=== PATIENT | male | born 1995 | race Caucasian/White ===

== ENCOUNTER 2018-07-29 08:10 | Outpatient (REF) | payer SELFPAY ==
[2018-07-30 13:38] LABS: Chlamydia Result Negative; GC Result Negative; Specimen Description URINE
== END 2018-07-29 08:30 ==
LOC: NCHCN 08:10
PROVIDERS: PCP Internal Medicine; Visit Provider Internal Medicine
DX: Z11.3 Encounter for screening for infections with a predominantly sexual mode of transmission (principal); Z20.2 Contact with and (suspected) exposure to infections with a predominantly sexual mode of transmission
CPT/HCPCS: 87491; 87591

== ENCOUNTER 2019-07-11 22:18 | Emergency (ER) | payer OTHER, SELFPAY ==
[2019-07-11 22:21] VITALS: BP 145/82; PULSE 111; RESP 20; TEMP 36.4; O2SAT 99
--- NOTE | 2019-07-11 22:29 | NUR.NOTE ---
to room3 via WC with c/o right ankle pain s/p hitting tree while sledding. States he hit his right ankle against tree. +PP, +CSM. 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 Pt reports he drank half a 1/5 and 10 beers tonight. Mild swelling.
--- NOTE | 2019-07-11 22:33 | ED.GENADUL_ITS ---
Discharge Plan Disposition Patient Disposition: HOME Condition: Stable Discharge Details Chief Complaint: Orthopedic Clinical Impression: Closed right fibular fracture Primary Care Provider: Paul Campos ED Provider: Richi Jacobo Home Meds and New Rx's Prescriptions: New oxycodone 5 mg tablet 5 mg PO Q6H PRN (Reason: pain) Qty: 10 RF: 0 Continued buprenorphine-naloxone [Suboxone] 1 EACH film 8 mg PO DAILY RF: 0 clonidine HCl [Catapres] 0.2 MG tablet 0.2 mg PO HS RF: 0 omeprazole 20 MG capsule,delayed release(DR/EC) 20 mg PO DAILY RF: 0 azithromycin 250 MG tablet 250 mg PO DAILY Qty: 4 RF: 0 Discharge Instructions Instructions: Leg Fracture (ED) Additional Instructions: call orthopedics saturday for an appointment if you have severe worsening pain or feel worsening numbness return to the emergency department for reexamination you can take 1000mg tylenol and 600mg ibuprofen every 6 hours for pain and if need additional pain medication take 1 oxycodone. Medical Decision Making 24 yo male who states he was riding a sled when he lost control and his right ankle hit a tree. Did not hit his head and has no headache, neck pain, abd pain, chest pain, or sob. Has no significant deformity, mild swelling of medial and lateral malleolus, 2+ dp/pt pulses and normal sensation. Suspect sprain but will xray to eval for possible fx xray shows fibula fracture. Soft muscles, no evidence of peroneal nerve injury. Will place in posterior leg splint and have him f/u with orthopedics Differential Diagnosis Differential Diagnosis: sprain, strain, fracture, dislocation Medical Records Medical records reviewed: Yes I reviewed the patient's medical records. Imaging Data Radiologic Study: Attestation: I personally reviewed and interpreted this imaging study as follows: Imaging: X-Ray Radiologist's impression: IMPRESSION: No acute findings. on foot xray Radiologic Study #2: Attestation: I personally reviewed and interpreted this imaging study as follows: Imaging: X-Ray My impression: fracture Radiologist's impression: FINDINGS/IMPRESSION: There is a comminuted displaced fracture of the distal fibular diaphysis. Several lucencies in the posterior malleolus concerning for a minimally displaced fracture. No other acutely displaced fractures are appreciated. Mild widening of the medial clear space questionable for subtle subluxation. No definitive dislocation. Severe soft tissue swelling about the ankle. HPI General Mode of arrival: ambulatory . Date/Time Provider Initiated Documentation: 07/11/19 22:22 . Limitations to Documentation: no limitations . Information obtained by: patient . History of Present Illness 24 year old M presents to the emergency department with the chief complaint of right ankle pain, described as moderate, and it has been constant. Rest improves symptom(s), Movement worsens symptoms . Patient notes no other symptoms.. Related Data Home Medications Medication Instructions Recorded Confirmed buprenorphine-naloxone [Suboxone] 8 mg PO DAILY 05/06/15 11/01/16 clonidine HCl [Catapres] 0.2 mg PO HS 04/18/16 11/01/16 azithromycin 250 mg PO DAILY #4 tablet 11/01/16 omeprazole 20 mg PO DAILY 11/01/16 11/01/16 oxycodone 5 mg PO Q6H PRN #10 tab 07/11/19 Previous Rx's Medication Instructions Recorded azithromycin 250 mg PO DAILY #4 tablet 11/01/16 oxycodone 5 mg PO Q6H PRN #10 tab 07/11/19 Allergies Allergy/AdvReac Type Severity Reaction Status Date / Time Penicillins Allergy rash Unverified 07/11/19 22:23 Sulfa (Sulfonamide AdvReac Intermediate Hives Unverified 07/11/19 22:23 Antibiotics) General Stated Complaint: Orthopedic GRACIE: 3 Review of Systems All systems reviewed & are unremarkable except as noted in HPI and below Constitutional Constitutional: Denies chills, Denies fever(s) and Denies weakness Cardiovascular Cardiovascular: Denies dyspnea Respiratory Respiratory: Denies dyspnea Gastrointestinal Gastrointestinal: Denies abdominal pain, Denies nausea and Denies vomiting Neurologic Neurologic: Denies weakness PFSH Family History Mother No problems noted. Father Substance abuse Grandmother No problems noted. Grandmother No problems noted. Grandmother No problems noted. Social History Smoking/Tobacco Use Status: Current-Occasional Alcohol Intake: current Alcohol Intake frequency: 3 or more drinks per day Alcohol type: beer and hard liquor Drug use: Current Sobriety Substance use type: does not use Do you feel safe at home: Yes Do you feel safe in your relationship?: Yes Exam Const General: anxious Orientation: alert HENMT Head: normal to inspection Ears: external ears normal General nose exam: external nose normal Mouth: moist mucous membranes Eyes General: appearance normal, both eyes and all related structures Neck Neck: normal visual inspection Resp Effort & Inspection: normal respiratory effort and able to speak in complete sentences Cardio Rate: regular rate Skin General skin exam: no rashes or lesions noted Neuro General: alert and oriented x3 Extrem General: normal capillary refill Psych Mental Status: mental status grossly normal Course Vital Signs Vital signs: Vital Signs Temperature 36.4 C L 07/11/19 22:21 Pulse 111 H 07/11/19 22:21 Respiratory Rate 07/11/19 22:21 Blood Pressure 145/82 H 07/11/19 22:21 Pulse Oximetry 99 07/11/19 22:21 Temperature 36.4 C L 07/11/19 22:21 Temperature Source Temporal Artery Scan 07/11/19 22:21 Pulse 111 H 07/11/19 22:21 Respiratory Rate 07/11/19 22:21 Respiratory Effort 07/11/19 22:27 Blood Pressure 145/82 H 07/11/19 22:21 Pulse Oximetry 99 07/11/19 22:21 Oxygen Delivery Method Room Air 07/11/19 22:21 Oxygen Flow Rate 0 07/11/19 22:21 Pain Level 10 07/11/19 22:21 Procedures Orthopedic Splinting/Casting Injury #1: Side: right Lower Extremity Injury Location: lower leg Lower Extremity Immobilizer: posterior splint Other Orthopedic Equipment: crutches
[2019-07-11] MEDS: Ketorolac 30 MG/ML VIAL IM (22:34)
--- NOTE | 2019-07-11 22:38 | DI.RAD_ITS ---
EXAM: XR ANKLE RT COMPLETE INDICATION: pain s/p fall. COMPARISON: XR FOOT RT COMPLETE from 07/11/2019 XR FOOT RT COMPLETE from 07/11/2019 TECHNIQUE: 2D digital imaging was performed. FINDINGS: There is a spiral fracture of the distal fibula with mild lateral and posterior displacement. There is no significant angulation. The ankle mortise is widened medially. There is a nondisplaced fract ure of the posterior malleolus extending to the articular surface. No talar dome defect is seen. Th ere are small calcaneal spurs. IMPRESSION: Distal fibular fracture. Medial ankle mortise widening. Posterior malleolar fracture.
--- NOTE | 2019-07-11 22:43 | DI.RAD_ITS ---
EXAM: XR FOOT RT COMPLETE INDICATION: pain s/p fall. COMPARISON: No exams were available for comparison TECHNIQUE: 2D digital imaging was performed. FINDINGS: No fracture or dislocation is seen. IMPRESSION: Negative right foot.
[2019-07-11] MEDS: oxyCODONE 5 MG TAB PO (22:58)
--- NOTE | 2019-07-11 23:03 | DI.VRAD_ITS ---
PROCEDURE INFORMATION: Exam: XR Right Foot Complete Exam date and time: 07/11/2019 10:52 PM Age: 24 years old Clinical indication: Other: Pain S/P fall TECHNIQUE: Imaging protocol: XR Right foot. Views: 3 or more views. COMPARISON: CR XR ANKLE RT COMPLETE 07/11/2019 10:38 PM FINDINGS: Bones/joints: Normal. Soft tissues: Normal. IMPRESSION: No acute findings. Dictated and Authenticated by: Héctor Coronado MD. Ordering:TOD Stoddard MD
--- NOTE | 2019-07-11 23:06 | DI.VRAD_ITS ---
PROCEDURE INFORMATION: Exam: XR Right Ankle Exam date and time: 07/11/2019 10:52 PM Age: 24 years old Clinical indication: Other: Pain S/P fall TECHNIQUE: Imaging protocol: XR Right ankle. Views: 3 or more views. COMPARISON: No relevant prior studies available. FINDINGS/IMPRESSION: There is a comminuted displaced fracture of the distal fibular diaphysis. Several lucencies in the posterior malleolus concerning for a minimally displaced fracture. No other acutely displaced fractures are appreciated. Mild widening of the medial clear space questionable for subtle subluxation. No definitive dislocation. Severe soft tissue swelling about the ankle. Dictated and Authenticated by: Héctor Coronado MD. Ordering:TOD Stoddard MD
--- NOTE | 2019-07-11 23:40 | NUR.NOTE ---
Crutch teaching with return demonstration. Discharge instructions reviewed with verbal understanding. aware to f/u with ortho. to exit via wc.
== END 2019-07-11 23:40 | disposition home or self-care (01) ==
PROVIDERS: Emergency Provider Emergency Medicine; PCP Internal Medicine
DX: S82.451A Displaced comminuted fracture of shaft of right fibula, initial encounter for closed fracture (principal); W22.09XA Striking against other stationary object, initial encounter; Y93.23 Activity, snow (alpine) (downhill) skiing, snowboarding, sledding, tobogganing and snow tubing
CPT/HCPCS: 29515; 96372; 99284; 73610; 73630; E0114; J1885

== ENCOUNTER 2019-07-14 11:31 | Outpatient (CLI) | payer OTHER, SELFPAY ==
--- NOTE | 2019-07-14 12:00 | DI.RAD_ITS ---
EXAM: XR TIB/FIB RT INDICATION: fracture. COMPARISON: XR ANKLE RT COMPLETE from 07/11/2019 TECHNIQUE: 2D digital imaging was performed. FINDINGS: A posterior splint is in place. There has been no change in the alignment of the distal fibular fra cture. No additional fractures are visible. No ankle mortise widening is seen on the two views perf ormed.
== END 2019-07-14 11:51 ==
PROVIDERS: PCP Internal Medicine; Visit Provider Student in an Organized Health Care Education/Training Program
DX: S82.451D Displaced comminuted fracture of shaft of right fibula, subsequent encounter for closed fracture with routine healing (principal)
CPT/HCPCS: 73590

== ENCOUNTER 2019-07-17 08:26 | Day surgery (SDC) | payer OTHER, SELFPAY ==
[2019-07-17] VITALS (11 sets, daily range): BP systolic 111–139; BP diastolic 61–94; PULSE 83–100; RESP 16–29; TEMP 36–37.2; O2SAT 92–99
[2019-07-17] MEDS: Lactated Ringers 1,000 ML 100 ML IV (09:00)
[2019-07-17] MEDS: ceFAZolin 2 GM/50 ML BAG IVPB (10:27)
--- NOTE | 2019-07-17 12:48 | DI.RAD_ITS ---
EXAM: XR ANKLE RT COMPLETE CLINICAL HISTORY: ORIF of Right ankle fx TECHNIQUE: 2D digital imaging was performed. COMPARISON: No exams were available for comparison FINDINGS: C-arm fluoroscopy was utilized by Dr. Henriquez during open reduction internal fixation fracture of the d istal fibula. Hard copies show fixation of the fracture fragments with an apparent tibiofibular fixa tion suture. Fluoro time 98 seconds
[2019-07-17] MEDS: Bupivacaine 0.5% Pres-Free 30 ML VIAL (13:04)
--- NOTE | 2019-07-17 13:11 | PDOC.DSDIS_ITS ---
Discharge Plan Disposition Patient Disposition: HOME Condition: Stable Discharge Details Reason For Visit: (R) TRIMAL EQUIV ANKLE FX Attending Provider: Neil Henriquez Primary Care Provider: Paul Campos Home Meds and New Rx's Prescriptions: New aspirin [Lite Coat Aspirin] 325 mg tablet 325 mg PO BID 30 Days Qty: 60 RF: 0 oxycodone 5 mg tablet 5 - 10 mg PO Q4H PRN (Reason: moderate to severe pain) Qty: 22 RF: 0 Continued naproxen 250 mg tablet 250 mg PO BID PRN (Reason: pain, moderate) Qty: 60 RF: 0 acetaminophen [Tylenol] 325 mg Capsule 650 mg PRNRF: 0 Discontinued oxycodone 5 mg tablet 5 mg PO Q6H PRN (Reason: pain) Qty: 10 RF: 0 ibuprofen 600 mg Tablet 600 mg PO PRNRF: 0 Discharge Instructions Additional Instructions: Surgery: Right ankle and syndesmosis open reduction internal fixation Activity: Toe-touch weightbearing in splint at all times. Strict elevation. Daily range of motion to toes and knee. A physical therapy prescription will be provided separately in the office at follow-up if necessary. Prescriptions: Aspirin 325 mg take 1 twice a day to prevent a blood clot for 30 days Naproxen 250 mg take 1-2 every 12 hours with a meal as needed for moderate pain Oxycodone 5 mg take 1-2 every 4-6 hours as needed for severe pain You may use [id number] Tylenol (acetaminophen) as needed for mild pain. These pain medications may be taken all at once or in different combinations as needed. Also, recommend Colace (docusate) as a stool softener as surgery and pain medicine cause constipation. Dressings: Leave splint and dressing in place until follow-up. Keep clean and dry at all times. Do not recommend showering. If must shower, cover entire leg with bag/waterproof cast cover carefully. Follow-up: 10-[address] Henriquez Please call the office during business hours with any questions or concerns. Let us know right away if you develop any redness, drainage, fevers, chest pain, or trouble breathing. Do not drink alcohol or drive for at least 24 hours after anesthesia. Referrals: Neil Henriquez MD [ [facility] STAFF PHYSICIAN] - Discharge Orders Discharge Orders: Discharge Order (Routine); Ordered 07/17/19 Ordered By: Neil Henriquez DS: Diagnosis Discharge Diagnosis (1) Nicotine dependence: Status: Acute (2) Narcotic abuse in remission: Status: Acute (3) Trimalleolar fracture of ankle, closed: Status: Acute (4) Ankle syndesmosis disruption: Status: Acute
--- NOTE | 2019-07-17 14:34 | ROE_ITS ---
Date of service: 07/17/19 Time of Service: 13:11 Operative Note Operative Note DATE OF PROCEDURE: 07/17/19 PRE-OP DIAGNOSIS: 1. Right trimalleolar equivalent ankle fracture 2. Right ankle syndesmotic disruption POST-OP DIAGNOSIS: same PROCEDURE: 1. Right ankle open reduction internal fixation 2. Right syndesmosis open reduction internal fixation 3. Manual stress radiography including mortise ankle x-rays without stress, with external rotation ankle stress, and direct fibular translation test (cotton test) SURGEON: Neil Henriquez VISUAL MERCHANDISING ASSISTANT: Phyllis Ulloa ANESTHESIA: GETA and regional ESTIMATED BLOOD LOSS: 10 TOURNIQUET TIME: 115 COMPLICATIONS: None Patient was transported to: PACU Patient's condition: stable Implants: 4x 3.5 mm cortex lag screws 1x Arthrex TightRope XP Indications: Please see complete medical record for details. Findings: Segmental fibula fracture. Stable after lag screw only fixation. Well reduced PITFL avulsion fracture. Unstable syndesmosis after fibula fixation. Stable after 1 suture button syndesmotic fixation. Procedure Description: The patient was taken to the operating room and transferred to the operating room table. Anesthesia was induced. All bony prominences were well-padded. Preoperative antibiotics were administered. The right leg was prepped and draped in the usual sterile fashion. The correct patient, procedure, and side of the procedure were all verified prior to incision. An Esmarch was used to exsanguinate the right lower extremity. The tourniquet was inflated. A posteriorly placed relative to the fibula longitudinal incision was used. Care was taken to dissect through subcutaneous and deeper tissues in order to ensure the superficial peroneal nerve was not injured. The peroneal tendons were identified proximally and the posterior margin of the fibula bone more distally in the incision. A full-thickness periosteal layer was raised off the lateral fibula about the fracture site. The segmental nature of the fractur e was exposed and cleaned of fibrous debris. The butterfly fragment was reduced using bone-holding forceps to the distal fibular shaft. Both butterfly fragment and distal fibular shaft was then reduced with other bone-holding clamps to the proximal fibula fracture and then the whole fracture was provisionally held in place with a pointed and serrated bone-holding forceps. There was an excellent fracture magallanes confirming reduction at the anterior-inferior, lateral, and posterior inferior margins. 2 x 3.5 mm cortex screws were placed in lag fashion after provisionally reducing the butterfly fragment to the distal fragment. The distal clamps were removed. 2 x 3.5 mm cortex lag screws were then placed securing the proximal fracture to the butterfly fragment. The remaining bone clamps were removed. Anatomic fracture reduction was confirmed visually and on AP oblique and lateral fluoroscopy. The fracture site was stressed with external rotation about the ankle and exhibited no motion. Decision was made to omit additional fixation with a plate to protect these 4 strong lag screws. Next external rotation stress showed syndesmotic widening under fluoroscopy confirming the syndesmotic injury. The distal leg was bumped to the heel was just floating. The incision was extended distally to allow syndesmotic fixation. The Arthrex 3.7 mm drill was passed under fluoroscopic guidance parallel to the joint at the appropriate height through central portion of the tib-fib joint and syndesmosis going through all 4 cortices of the fibula and tibia lateral to medial while maintaining the appropriate posterior to anterior trajectory. The tight rope device was inserted under fluoroscopic ends until the button was passed the most medial cortex, the handle was used to release and flipped the device, and then the suture tensioning handles were used to provisionally bring the lateral button down to bone. A 1 cm incision was made over the medial tight rope implant. A snap was used to spread soft tissue interposition and correctly orient the button in the longitudinal plane. My diagnostic assistant maintained the foot in dorsiflexion while I proceeded to tension the implant. Fluoroscopy was used to confirm a well reduced tib-fib joint and medial clear space. External rotation stress testing as well as direct lateral fibular translation cotton testing revealed stable syndesmosis with good tib-fib overlap and no medial clear space widening. The decision was made to omit a second syndesmotic suture button device. Final AP lateral and mortise fluoroscopy confirmed excellent fracture site reduction, fibular length, appropriate hardware placement, and a well reduced ankle mortise and syndesmosis. All wounds were copiously irrigated normal saline. 0 Vicryl was used to close deep tissue laterally. The tourniquet was let down while pressure was maintained with moist lap over the incisions, which achieved hemostasis. Cutaneous tissue was closed using 2-0 Monocryl in a buried interrupted fashion. A 50-50 mix of 1% lidocaine with epinephrine and 0.25% bupivacaine plain 30 cc was infiltrated about the medial and lateral wounds. 3-0 nylon was used to close the skin in a horizontal mattress fashion. Xeroform was applied over the incisions followed by dry 4 x 4 gauze and sterile soft roll. The right lower extremity was placed into a well-padded well molded short leg plaster splint. The patient awoke from anesthesia without complication and was transferred recovery room in stable condition.
[2019-07-17] MEDS: LORazepam 2 MG/ML VIAL 0.5 MG IVP (14:52)
[2019-07-17] MEDS: oxyCODONE 5 MG TAB PO ×2 (15:19→16:04)
== END 2019-07-17 17:55 | disposition home or self-care (01) ==
PROVIDERS: PCP Internal Medicine; Visit Provider Student in an Organized Health Care Education/Training Program
PROC: (CPT 27792; principal; 2019-07-17 10:00)
DX: S82.851A Displaced trimalleolar fracture of right lower leg, initial encounter for closed fracture (principal); S93.431A Sprain of tibiofibular ligament of right ankle, initial encounter; G89.18 Other acute postprocedural pain; F17.210 Nicotine dependence, cigarettes, uncomplicated; F11.11 Opioid abuse, in remission; E66.01 Morbid (severe) obesity due to excess calories; X50.0XXA Overexertion from strenuous movement or load, initial encounter; Y93.23 Activity, snow (alpine) (downhill) skiing, snowboarding, sledding, tobogganing and snow tubing; Z88.0 Allergy status to penicillin; Z88.2 Allergy status to sulfonamides; Z68.41 Body mass index [BMI] 40.0-44.9, adult
CPT/HCPCS: 27792; 27829; C1713; 76942; 73610; J0131; J0690; J1100; J1885; J2001; J2060; J2250; J2405; J2704; J3010; J3475

== ENCOUNTER 2019-07-29 15:04 | Outpatient (CLI) | payer OTHER, SELFPAY ==
--- NOTE | 2019-07-29 14:00 | DI.RAD_ITS ---
EXAM: XR ANKLE RT COMPLETE INDICATION: ORIF R ANKLE. COMPARISON: XR ANKLE RT COMPLETE from 07/11/2019 XR TIB/FIB RT from 07/14/2019 XR ANKLE RT COMPLETE from 07/17/2019 TECHNIQUE: 2D digital imaging was performed. FINDINGS: Screws are again noted in the distal fibula for fracture fixation. The fracture alignment remains an atomic. No ankle mortise widening is seen.
== END 2019-07-29 15:24 ==
PROVIDERS: PCP Internal Medicine; Visit Provider Physician Assistant
DX: S82.451D Displaced comminuted fracture of shaft of right fibula, subsequent encounter for closed fracture with routine healing (principal)
CPT/HCPCS: 73610

== ENCOUNTER 2019-09-09 11:32 | Outpatient (CLI) | payer OTHER, SELFPAY ==
--- NOTE | 2019-09-09 11:15 | DI.RAD_ITS ---
EXAM: XR ANKLE RT COMPLETE CLINICAL HISTORY: s/p ORIF ankle. TECHNIQUE: 2D digital imaging was performed. COMPARISON: XR ANKLE RT COMPLETE from 07/29/2019 FINDINGS: There has been no change in alignment of the distal right fibular fracture with screws transfixing th e fracture. Fixation of the distal tibial fibular syndesmosis is also noted. The soft tissues are u nremarkable. IMPRESSION: Stable right ankle. DATA REPOSITORY: RADIATION DOSE DELIVERED:
== END 2019-09-09 11:52 ==
PROVIDERS: PCP Internal Medicine; Visit Provider Physician Assistant
DX: S82.851D Displaced trimalleolar fracture of right lower leg, subsequent encounter for closed fracture with routine healing (principal)
CPT/HCPCS: 73610

== ENCOUNTER 2019-10-29 11:39 | Outpatient (CLI) | payer OTHER, SELFPAY ==
--- NOTE | 2019-10-29 09:00 | DI.RAD_ITS ---
EXAM: XR ANKLE RT COMPLETE CLINICAL HISTORY: Post op check Right ankle fracture TECHNIQUE: COMPARISON: CR XR ANKLE RT COMPLETE from 09/09/2019 FINDINGS: Three views were obtained and show previously described fixation of distal fibula and tibial fibular joint. Ankle mortise is well maintained. No change in alignment in comparison examination August h IMPRESSION:
== END 2019-10-29 11:59 ==
PROVIDERS: PCP Internal Medicine; Visit Provider Student in an Organized Health Care Education/Training Program
DX: S82.451D Displaced comminuted fracture of shaft of right fibula, subsequent encounter for closed fracture with routine healing (principal)
CPT/HCPCS: 73610

== ENCOUNTER 2020-03-02 13:34 | Outpatient (CLI) | payer OTHER, SELFPAY ==
--- NOTE | 2020-03-02 13:00 | DI.RAD_ITS ---
EXAM: XR ANKLE RT COMPLETE CLINICAL HISTORY: right ankle fracture TECHNIQUE: COMPARISON: CR XR ANKLE RT COMPLETE from 10/29/2019 FINDINGS: Three views were obtained. Previously described fixation is again noted of fibula and tibial fibular joint. Alignment appears unchanged comparison with previous films of October 28. IMPRESSION: No change in appearance. RADIATION DOSE DELIVERED: Total DLP
== END 2020-03-02 13:54 ==
PROVIDERS: PCP Internal Medicine; Referring Provider Internal Medicine; Visit Provider Student in an Organized Health Care Education/Training Program
DX: S82.891A Other fracture of right lower leg, initial encounter for closed fracture (principal)
CPT/HCPCS: 73610

== ENCOUNTER 2020-04-13 07:54 | Outpatient (CLI) | payer OTHER, SELFPAY ==
[2020-04-16 13:27] LABS: COVID-19 RT-PCR Result Negative
== END 2020-04-13 08:14 ==
PROVIDERS: PCP Internal Medicine; Visit Provider Student in an Organized Health Care Education/Training Program
DX: Z01.818 Encounter for other preprocedural examination (principal); S82.851A Displaced trimalleolar fracture of right lower leg, initial encounter for closed fracture
CPT/HCPCS: U0003

== ENCOUNTER 2020-04-15 07:28 | Day surgery (SDC) | payer OTHER, SELFPAY ==
[2020-04-15] VITALS (11 sets, daily range): BP systolic 124–179; BP diastolic 83–120; PULSE 64–78; RESP 12–18; TEMP 36.3–36.7; O2SAT 94–100
--- NOTE | 2020-04-15 07:30 | DI.RAD_ITS ---
EXAM: XR ANKLE RT COMPLETE 2D digital imaging was performed. CLINICAL HISTORY: PAINFUL HARDWARE TECHNIQUE: COMPARISON: CR XR ANKLE RT COMPLETE from 03/02/2020 FINDINGS: C-arm fluoroscopy is utilized by Dr. Henriquez during hardware removal. Hard copies show removal of sutu re anchors from the tibiofibular joint fixation. Fluoro time, 7.7 seconds. IMPRESSION: RADIATION DOSE DELIVERED: Total DLP
[2020-04-15] MEDS: Lactated Ringers 1,000 ML 100 ML IV (08:19)
[2020-04-15] MEDS: ceFAZolin 2 GM/50 ML BAG IVPB (08:23)
--- NOTE | 2020-04-15 09:58 | W.PM.DSUDISC ---
Discharge Plan Disposition Patient Disposition: HOME Condition: Stable Discharge Details Reason For Visit: PAINFUL HARDWARE (R) ANKLE Attending Provider: Neil Henriquez Primary Care Provider: Paul Campos Home Meds and New Rx's Prescriptions: New aspirin 81 mg tablet,delayed release (DR/EC) 81 mg PO DAILY 14 Days Qty: 14 RF: 0 ibuprofen 800 mg tablet 800 mg PO BID PRN (Reason: pain, moderate) Qty: 60 RF: 0 Continued bupropion HCl [Wellbutrin XL] 300 mg tablet extended release 24 hr 300 mg PO QAM RF: 0 acetaminophen [Tylenol] 325 mg Capsule 650 mg PO Q4H PRNRF: 0 Discontinued ibuprofen 200 mg Tablet 600 mg PO DAILY RF: 0 Discharge Instructions Additional Instructions: Surgery: Right ankle removal of hardware Activity: Advance to full weightbearing as tolerated as comfort allows. Recommend ice and elevation as needed, especially over the first 2 weeks to minimize swelling and discomfort. A physical therapy prescription will be provided separately in the office at follow-up if needed. Prescriptions: Aspirin 81 mg take 1 daily to prevent a blood clot for 2 weeks Ibuprofen 800 mg take 1-2 every 12 hours with a meal as needed for moderate pain No narcotic pain medicine should be required You may use [id number] Tylenol (acetaminophen) as needed for mild pain. These pain medications may be taken all at once or in different combinations as needed. Also, recommend Colace (docusate) as a stool softener as surgery and pain medicine cause constipation. Dressings: Leave dressing in place for 2-3 days. May then remove and leave Steri-Strips open to air or cover with Band-Aids. May shower after 5 days. Follow-up: 10-[address] Henriquez Let us know right away if you develop any redness, drainage, fevers, chest pain, or trouble breathing. Do not drink alcohol or drive for at least 24 hours after anesthesia. Please call the office during business hours with any questions or concerns. Referrals: Neil Henriquez MD [ [facility] STAFF PHYSICIAN] - Discharge Orders Discharge Orders: Discharge Order (Routine); Ordered 04/15/20 Ordered By: Neil Henriquez DS: Diagnosis Discharge Diagnosis (1) Painful orthopaedic hardware: Status: Acute
--- NOTE | 2020-04-15 10:02 | W.PM.OP ---
Date of service: 04/15/20 Time of Service: 10:02 Operative Note Operative Note DATE OF PROCEDURE: 04/15/20 PRE-OP DIAGNOSIS: 1. Right ankle painful hardware POST-OP DIAGNOSIS: same PROCEDURE: 1. Right ankle removal deep implant, CPT #14654: Syndesmotic TightRope cortical buttons and sutures 2. Manual stress radiography of joint, CPT #82942: Syndesmotic external rotation stress test under fluoroscopy post hardware removal SURGEON: Neil Henriquez CHECKER CASHIER: Monika Carranza ANESTHESIA: GETA and local ESTIMATED BLOOD LOSS: 5 PATHOLOGY: none sent TOURNIQUET TIME: 0 COMPLICATIONS: None Patient was transported to: PACU Patient's condition: stable Indications: Please see complete medical record for details. Findings: Stable syndesmosis after syndesmotic hardware removal Procedure Description: In the operating room, general anesthesia was induced. The patient was positioned supine on the operating room table. All bony prominences were well-padded. Preoperative antibiotics were administered. The right ankle was prepped and draped in the usual sterile fashion. The correct patient, procedure, and side of the procedure were all verified prior to incision. 10 cc of 0.5% bupivacaine containing epinephrine was infiltrated about the medial and lateral planned incisions directly over the palpable cortical button hardware. Previous incisions were opened approximately 2 cm longitudinally medially and laterally with careful spreading down to bone and cortical button implant. Extensive healing fibrous debris and periosteum was cleared of the buttons and sutures using sharp and blunt dissection. The medial button suture cord was severed, and the medial button removed from the bone in entirety. Next, the lateral button was delivered out of the fibula with the remainder of the sutures attached. The medial lateral wounds were inspected for any remnant suture or prominent scar tissue. Both sites were copiously irrigated with normal saline. C-arm fluoroscopy was brought in to confirm complete hardware removal. Manual external rotation stress view of the mortise was used to confirm stable syndesmosis post hardware removal. Subcutaneous tissues closed in 3-0 Monocryl in a buried interrupted fashion. Mastisol, Steri-Strips, Xeroform, 4 x 4's, and soft roll applied about the ankle and hindfoot. The right foot ankle and leg were wrapped gently Ashkan compressive bandage. The patient awoke from anesthesia without complication and was transferred to the recovery room in a stable condition.
[2020-04-15] MEDS: fentaNYL 100 MCG/2 ML VIAL IVP ×2 (10:10→10:15)
[2020-04-15] MEDS: HYDROmorphone 2 MG/ML VIAL IVP ×4 (10:20→11:17)
[2020-04-15] MEDS: LORazepam 2 MG/ML VIAL 0.5 MG IVP ×2 (10:47→11:10)
--- NOTE | 2020-04-15 12:40 | W.PM.DSUDISC ---
Discharge Plan Disposition Patient Disposition: HOME Condition: Stable Discharge Details Reason For Visit: PAINFUL HARDWARE (R) ANKLE Attending Provider: Neil Henriquez Primary Care Provider: Paul Campos Home Meds and New Rx's Prescriptions: New aspirin 81 mg tablet,delayed release (DR/EC) 81 mg PO DAILY 14 Days Qty: 14 RF: 0 ibuprofen 800 mg tablet 800 mg PO BID PRN (Reason: pain, moderate) Qty: 60 RF: 0 ondansetron 4 mg tablet,disintegrating 4 mg PO Q6H PRN (Reason: nausea or vomiting) Qty: 5 RF: 0 Continued bupropion HCl [Wellbutrin XL] 300 mg tablet extended release 24 hr 300 mg PO QAM RF: 0 acetaminophen [Tylenol] 325 mg Capsule 650 mg PO Q4H PRNRF: 0 Discontinued ibuprofen 200 mg Tablet 600 mg PO DAILY RF: 0 Discharge Instructions Additional Instructions: Surgery: Right ankle removal of hardware Activity: Advance to full weightbearing as tolerated as comfort allows. Recommend ice and elevation as needed, especially over the first 2 weeks to minimize swelling and discomfort. A physical therapy prescription will be provided separately in the office at follow-up if needed. Prescriptions: Aspirin 81 mg take 1 daily to prevent a blood clot for 2 weeks Ibuprofen 800 mg take 1-2 every 12 hours with a meal as needed for moderate pain No narcotic pain medicine should be required You may use [id number] Tylenol (acetaminophen) as needed for mild pain. These pain medications may be taken all at once or in different combinations as needed. Ondansetron (Zofran) 4 mg take 1 orally dissolving tablet every 6 hours as needed for nausea or vomiting Also, recommend Colace (docusate) as a stool softener as surgery and pain medicine cause constipation. Dressings: Leave dressing in place for 2-3 days. May then remove and leave Steri-Strips open to air or cover with Band-Aids. May shower after 5 days. Follow-up: 10-[address] Henriquez Let us know right away if you develop any redness, drainage, fevers, chest pain, or trouble breathing. Do not drink alcohol or drive for at least 24 hours after anesthesia. Please call the office during business hours with any questions or concerns. Stand Alone Forms: Tasha Valerio (GIOVANNA) Referrals: Neil Henriquez MD [ [facility]] - Discharge Orders Discharge Orders: Discharge Order (Routine); Ordered 04/15/20 Ordered By: Neil Henriquez DS: Diagnosis Discharge Diagnosis (1) Painful orthopaedic hardware: Status: Acute
[2020-04-15] MEDS: Ondansetron 4 MG/2 ML VIAL (12:58)
[2020-04-15] MEDS: Droperidol 5 MG/2 ML VIAL 0.625 MG IVP (13:28)
--- NOTE | 2020-04-15 13:36 | NUR.NOTE ---
Nursing Note: Pt was ordered Zofran for nausea/vomitting. Pt given zofran as ordered. This nurse then began reading d/c instructions and Pt began vomitting again, filling emesis bag at approx 1310. Anesthesia was notified. Anshul Coffman CRNA wrote order for Droperidol. ALANA retrieved medication from a pixus, and brought vial over. ALANA assisted this nurse to reconstitute medication per his formula. Medication was drawn up and 2.5 ml of the NS flush/droperidol reconstitution was then administered, see MAR. Pt tolerated well. Pt handed back off to Guillermina Mireles RN.
== END 2020-04-15 13:40 | disposition home or self-care (01) ==
PROVIDERS: PCP Internal Medicine; Visit Provider Student in an Organized Health Care Education/Training Program
PROC: (CPT 20680; principal; 2020-04-15 09:00)
DX: T84.84XA Pain due to internal orthopedic prosthetic devices, implants and grafts, initial encounter (principal); J45.909 Unspecified asthma, uncomplicated
CPT/HCPCS: 20680; 73610; J0690; J1100; J1790; J1885; J2060; J2250; J2405; J2704; J3010

== ENCOUNTER 2020-08-03 02:52 | Emergency (ER) | payer OTHER, SELFPAY ==
--- NOTE | 2020-08-03 02:45 | DI.RAD_ITS ---
EXAM: XR HAND RT COMPLETE CLINICAL HISTORY: pain s/p blunt trauma. TECHNIQUE: 2D digital imaging was performed. COMPARISON: No exams were available for comparison FINDINGS: There are no distinct fracture lines in the right hand. However, there are multiple tiny faint radio paque foreign bodies lying in the soft tissues dorsal to the DIP joint of the 3rd-middle finger. No other foreign bodies identified. No radiographic evidence of osteomyelitis. IMPRESSION: DATA REPOSITORY: RADIATION DOSE DELIVERED:
--- NOTE | 2020-08-03 02:45 | DI.RAD_ITS ---
EXAM: XR FINGER RT MIDDLE CLINICAL HISTORY: pain s/p blunt trauma. TECHNIQUE: 2D digital imaging was performed. COMPARISON: CR,XR XR HAND RT COMPLETE from 08/03/2020 FINDINGS: There are no distinct fracture lines. However, there is a tiny submillimeter upset the are tiny sub millimeter densities seen in the soft tissues dorsal to the DIP joint. These may represent foreign b odies. IMPRESSION: DATA REPOSITORY: RADIATION DOSE DELIVERED:
[2020-08-03 02:58] VITALS: BP 160/110; PULSE 88; RESP 18; TEMP 36.7; O2SAT 95
--- NOTE | 2020-08-03 03:01 | W.ED.GENAD ---
Discharge Plan Disposition Patient Disposition: HOME Condition: Stable Discharge Details Clinical Impression: Contusion of hand, right Primary Care Provider: Paul Campos ED Provider: Richi Jacobo Home Meds and New Rx's Prescriptions: Continued bupropion HCl [Wellbutrin XL] 300 mg tablet extended release 24 hr 300 mg PO QAM RF: 0 acetaminophen [Tylenol] 325 mg Capsule 650 mg PO Q4H PRNRF: 0 ibuprofen 800 mg tablet 800 mg PO BID PRN (Reason: pain, moderate) Qty: 60 RF: 0 ondansetron 4 mg tablet,disintegrating 4 mg PO Q6H PRN (Reason: nausea or vomiting) Qty: 5 RF: 0 Discharge Instructions Instructions: Contusion in Adults (ED) Additional Instructions: if you have worsening pain, redness spreading down the finger or yellow/white discharge return to the emergency department Medical Decision Making 25 yo male was at work tonight when a 400 pound bar dropped on the right hand. Denies falling or other injuries and no pain elsewhere. He has swelling and tenderness of right middle finger, 0.5cc laceration running vertically over mid anterior middle finger. no pain in palm of hand or wrist with full rom of the wrist. normal sensation and cap refill. Is able to flex and extend at all joints of the fingers though has pain in the right middle finger when doing so. Suspect contusion vs fracture, will obtain xrays. xray shows no acute fracture, vrad states radiopaque foreign bodies overlying dorsal distal interphalangeal joint, he has several small pieces of dirt that I removed at bedside. Laceration of finger was very superficial so after discussion with him he would prefer steri strips instead of stitches. Will d/c and return precautions given Differential Diagnosis Differential Diagnosis: fracture, contusion, sprain Imaging Data Radiologic Study: Attestation: I personally reviewed and interpreted this imaging study as follows: Imaging: X-Ray Radiologist's impression: IMPRESSION: Swelling over the distal 3rd finger as described with faint radiopaque foreign bodies overlying the dorsal aspect of the distal interphalangeal joint. Faint osseous fragments less likely however cannot be completely excluded Radiologic Study #2: Attestation: I personally reviewed and interpreted this imaging study as follows: Imaging: X-Ray Radiologist's impression: IMPRESSION: Swelling over the distal 3rd finger as described with faint radiopaque foreign bodies overlying the dorsal aspect of the distal interphalangeal joint. Faint osseous fragments less likely however cannot be completely excluded HPI General Mode of arrival: ambulatory. Date/Time Provider Initiated Documentation: 08/03/20 02:59. Limitations to Documentation: no limitations. Information obtained by: patient. History of Present Illness 25 year old M presents to the emergency department with the chief complaint of right hand pain, described as moderate, Patient reports no radiation. Patient started experiencing this hour(s) (1) and it has been constant. No relieving factors improve symptom(s), No exacerbating factors reported . Patient notes no other symptoms.. Patient did receive the following treatments prior to arrival, none Related Data Home Medications Medication Instructions Recorded Confirmed acetaminophen [Tylenol] 650 mg PO Q4H PRN 07/17/19 05/31/20 bupropion HCl 300 mg 24 hr tablet, 300 mg PO QAM 04/12/20 05/31/20 extended release ibuprofen 800 mg PO BID PRN #60 tab 04/15/20 05/31/20 ondansetron 4 mg PO Q6H PRN #5 tab 04/15/20 05/31/20 Previous Rx's Medication Instructions Recorded ibuprofen 800 mg PO BID PRN #60 tab 04/15/20 ondansetron 4 mg PO Q6H PRN #5 tab 04/15/20 Allergies Allergy/AdvReac Type Severity Reaction Status Date / Time Penicillins Allergy rash Verified 05/31/20 10:04 Sulfa (Sulfonamide AdvReac Intermediate Hives Verified 05/31/20 10:04 Antibiotics) General Stated Complaint: Orthopedic GRACIE: 4 Review of Systems All systems reviewed & are unremarkable except as noted in HPI and below Constitutional Constitutional: Denies chills and Denies fever(s) Cardiovascular Cardiovascular: Denies chest pain and Denies dyspnea Respiratory Respiratory: Denies cough and Denies dyspnea Gastrointestinal Gastrointestinal: Denies abdominal pain, Denies nausea and Denies vomiting Musculoskeletal Musculoskeletal: Denies joint swelling [facility] Medical History (Updated 08/03/20 @ 03:44 by Richi Jacobo MD) Depression History of asthma Surgical History History of appendectomy History of myringotomy Trimalleolar fracture of ankle, closed (07/11/19) S/P ORIF: 07/17/2019 Family History Mother No problems noted. Father Substance abuse Grandmother No problems noted. Grandmother No problems noted. Grandmother No problems noted. Social History Smoking/Tobacco Use Status: Current every day Tobacco Type: smokeless tobacco Smoking risk assessment performed?: Yes Alcohol Intake: current Alcohol Intake frequency: a few times a month Drug use: Current Sobriety Substance use type: does not use Current gender identity: male Do you feel safe at home: Yes Do you feel safe in your relationship?: Yes Exam Const General: no acute distress Orientation: alert HENMT Head: normal to inspection Ears: external ears normal General nose exam: external nose normal Mouth: moist mucous membranes Eyes General: appearance normal, both eyes and all related structures Neck Neck: normal visual inspection Resp Effort & Inspection: normal respiratory effort and able to speak in complete sentences Cardio Rate: regular rate Skin General skin exam: no rashes or lesions noted Neuro General: patient alert and patient oriented x3 Extrem General: capillary refill normal Psych Mental Status: mental status grossly normal Course Vital Signs Vital signs: Vital Signs Temperature 36.7 C 08/03/20 02:58 Pulse 88 08/03/20 02:58 Respiratory Rate 18 08/03/20 02:58 Blood Pressure 160/110 H 08/03/20 02:58 Pulse Oximetry 95 08/03/20 02:58 Temperature 36.7 C 08/03/20 02:58 Temperature Source Temporal Artery Scan 08/03/20 02:58 Pulse 88 08/03/20 02:58 Respiratory Rate 18 08/03/20 02:58 Respiratory Effort Non-Labored 08/03/20 03:01 Blood Pressure 160/110 H 08/03/20 02:58 Blood Pressure Position Sitting 08/03/20 02:58 Pulse Oximetry 95 08/03/20 02:58 Oxygen Delivery Method Room Air 08/03/20 02:58 Oxygen Flow Rate 0 08/03/20 02:58 Pain Level 9 08/03/20 02:58
[2020-08-03] MEDS: Acetaminophen 500 MG TAB 1000 MG PO (03:03)
[2020-08-03] MEDS: Ibuprofen 600 MG TAB PO (03:03)
--- NOTE | 2020-08-03 03:36 | DI.VRAD_ITS ---
PROCEDURE INFORMATION: Exam: XR Right Hand Exam date and time: 08/03/2020 3:01 AM Age: 25 years old Clinical indication: Injury or trauma; Other: Hand/ middle finger crushed by heavy bar; Work related; Crushing; Finger and hand; Right; Injury date: 08/03/20; Injury details: 400 lb bar fell on middle finger/hand laceration on middle finger TECHNIQUE: Imaging protocol: XR Right hand. Views: 3 or more views. COMPARISON: No relevant prior studies available. FINDINGS: Mild swelling over the distal 3rd finger. Faint areas of increased density in the dorsal soft tissues adjacent to the distal 3rd interphalangeal joint IMPRESSION: Swelling over the distal 3rd finger as described with faint radiopaque foreign bodies overlying the dorsal aspect of the distal interphalangeal joint. Faint osseous fragments less likely however cannot be completely excluded Dictated and Authenticated by: Navid Gann MD. Ordering:TOD Stoddard MD
--- NOTE | 2020-08-03 03:36 | DI.VRAD_ITS ---
PROCEDURE INFORMATION: Exam: XR Right Finger(s) Exam date and time: 08/03/2020 3:01 AM Age: 25 years old Clinical indication: Injury or trauma; Other: 400 lb bar fell on hand/middle finger; Work related; Crushing; Right; Injury date: 08/03/20; Injury details: 400 lb bar fell on middle finger/hand laceration on middle TECHNIQUE: Imaging protocol: XR Right fingers. Views: Minimum 2 views. COMPARISON: No relevant prior studies available. FINDINGS: Mild swelling over the distal 3rd finger. Faint areas of increased density in the dorsal soft tissues adjacent to the distal 3rd interphalangeal joint IMPRESSION: Swelling over the distal 3rd finger as described with faint radiopaque foreign bodies overlying the dorsal aspect of the distal interphalangeal joint. Faint osseous fragments less likely however cannot be completely excluded Dictated and Authenticated by: Navid Gann MD. Ordering:TOD Stoddard MD
[2020-08-03 03:51] VITALS: BP 148/74; PULSE 88; RESP 18; TEMP 36.7; O2SAT 98
== END 2020-08-03 03:52 | disposition home or self-care (01) ==
PROVIDERS: Emergency Provider Emergency Medicine; PCP Internal Medicine
DX: S60.221A Contusion of right hand, initial encounter (principal); W20.8XXA Other cause of strike by thrown, projected or falling object, initial encounter; Y99.0 Civilian activity done for income or pay
CPT/HCPCS: 90471; 99284; 73130; 73140; 99283

== ENCOUNTER 2021-01-26 06:59 | Emergency (ER) | payer OTHER, SELFPAY ==
[2021-01-26] VITALS (17 sets, daily range): BP systolic 129–139; BP diastolic 81–102; PULSE 0–105; RESP 12–23; TEMP 36.4; O2SAT 93–100
--- NOTE | 2021-01-26 06:59 | ED.GENADUL_ITS ---
Discharge Plan Disposition Patient Disposition: HOME Condition: Improving Discharge Details Clinical Impression: Accidental heroin overdose Primary Care Provider: Paul Campos ED Provider: Kourtney Gonzalez Home Meds and New Rx's Prescriptions: New Narcan 4 mg/actuation spray,non-aerosol 4 mg intranasal Q2-3M PRN (Reason: opioid overdose) Qty: 2 RF: 0 Discharge Instructions Instructions: Opioid Safety (ED) Additional Instructions: You were given Narcan to go. An additional prescription for Narcan was sent electronically to your pharmacy. Use this as directed in case of opioid overdose. Follow-up with your primary care doctor for reevaluation within the next week and for referral to a head athletic trainer/strength coach or rehab if you decide you would like assistance with your drug use. Return immediately to the emergency department if you develop any worsening or new concerning symptoms such as persistent vomiting, difficulty breathing or any other concerns. Discharge Data Discharge Date/Time-TO BE ENTERED AT DEPARTURE: 01/26/21 08:30 Discharge Physician: Kourtney Gonzalez Medical Decision Making <Richi Jacobo MD - Last Filed: 01/26/21 07:17> 25 yo male with history of prior substance abuse comes in after heroin overdose. He states he inhaled cocaine and heroin this morning around 5am and was unresponsive, family administered nasal narcanand on ems arrival pt was awake and talking. He arrives stable speaking in full sentences, caox4 without complaints. He has no dyspnea, denies fevers or chest pain. Given rapid reversal of unresponsiveness with narcan do not feel labs or imaging indicated at this time, will observe. Pt declines to speak with head athletic trainer/strength coach pt had an episode of vomit, likely side effect of the drugs or narcan, will treat with zofran pt signed out to oncoming provider for continued observation Differential Diagnosis Differential Diagnosis: heroin overdose, drug abuse <Kourtney Gonzalez DO - Last Filed: 01/28/21 13:20> 0800 --please see Dr. Jacobo's note for initial presentation, exam and plan. Case endorsed to continue to monitor patient until 8:30 AM. If he remains in no acute distress and hemodynamically stable, can discharge to home with plan for Narcan to go. 0840 --Patient reassessed by me and he feels much better and would like to go home. He declined to speak to head athletic trainer/strength coach but states this experience has scared me and I do not want to do drugs again. He was given Narcan to go and a prescription sent electronically to his pharmacy. He was able to ambulate and had no signs of respiratory distress. He was able to eat breakfast and remained hemodynamically stable. Just prior to discharge he complained of heartburn and acid taste in his mouth with some minimal nausea after his vomiting this morning and was given Pepcid and Zofran with relief. Advised to follow up with the primary care doctor for re-evaluation. Usual and customary return precautions given prior to discharge. Medical Records Medical records reviewed: Yes I reviewed the patient's medical records. HPI <Richi Jacobo MD - Last Filed: 01/26/21 07:17> General Mode of arrival: ambulatory . Date/Time Provider Initiated Documentation: 01/26/21 07:06 . Limitations to Documentation: no limitations . Information obtained by: patient . History of Present Illness 25 year old M presents to the emergency department with the chief complaint of overdose, Patient started experiencing this minute(s) (30) and it has been now resolved. other things that improve symptom(s), (narcan) No exacerbating factors reported . Patient did receive the following treatments prior to arrival, other (narcan) Related Data Home Medications Medication Instructions Recorded Confirmed naloxone [Narcan] 4 mg INTRANASAL Q2-3M PRN #2 ea 01/26/21 Previous Rx's Medication Instructions Recorded naloxone [Narcan] 4 mg INTRANASAL Q2-3M PRN #2 ea 01/26/21 Allergies Allergy/AdvReac Type Severity Reaction Status Date / Time Penicillins Allergy rash Verified 01/26/21 07:26 Sulfa (Sulfonamide AdvReac Intermediate Hives Verified 01/26/21 07:26 Antibiotics) General GRACIE: 4 Review of Systems <Richi Jacobo MD - Last Filed: 01/26/21 07:17> All systems reviewed & are unremarkable except as noted in HPI and below Constitutional Constitutional: Denies chills, Denies fever(s) and Denies weakness Cardiovascular Cardiovascular: Denies chest pain and Denies dyspnea Respiratory Respiratory: Denies cough and Denies dyspnea Gastrointestinal Gastrointestinal: Denies abdominal pain, Denies nausea and Denies vomiting Musculoskeletal Musculoskeletal: Denies joint swelling Neurologic Neurologic: Denies weakness PFS <Richi Jacobo MD - Last Filed: 01/26/21 07:17> Medical History (Updated 01/26/21 @ 07:15 by Richi Jacobo MD) Depression History of asthma Surgical History History of appendectomy History of myringotomy Trimalleolar fracture of ankle, closed (07/11/19) S/P ORIF: 07/17/2019 Family History Mother No problems noted. Father Substance abuse Grandmother No problems noted. Grandmother No problems noted. Grandmother No problems noted. Social History Smoking/Tobacco Use Status: Current every day Tobacco Type: smokeless tobacco Smoking risk assessment performed?: Yes Alcohol Intake: current Alcohol Intake frequency: a few times a month Drug use: Occasionally Substance use type: crack/cocaine and heroin Details: uses about once a week Current gender identity: male Do you feel safe at home: Yes Do you feel safe in your relationship?: Yes Exam <Richi Jacobo MD - Last Filed: 01/26/21 07:17> Const General: no acute distress Orientation: alert HENMT Head: normal to inspection Ears: external ears normal General nose exam: external nose normal Mouth: moist mucous membranes Eyes General: appearance normal, both eyes and all related structures Neck Neck: normal visual inspection Resp Effort & Inspection: normal respiratory effort and able to speak in complete sentences Cardio Rate: regular rate Skin General skin exam: no rashes or lesions noted Neuro General: patient alert and patient oriented x3 Extrem General: normal to inspection Psych Mental Status: mental status grossly normal Sign Out <Richi Jacobo MD - Last Filed: 01/26/21 07:17> Sign Out Data: Sign Out Comment: heroin overdose and was given nasal narcan in the field arr ived cao4, observe in the ED if stable can likely be discharged Last updated by Richi Jacobo MD at 01/26/21 07:18
[2021-01-26] MEDS: Ondansetron 4 MG/2 ML VIAL IVP (07:17)
[2021-01-26] MEDS: Ondansetron O.D.T. 4 MG TABEF PO (08:26)
[2021-01-26] MEDS: Famotidine 20 MG TAB PO (08:26)
== END 2021-01-26 08:30 | disposition home or self-care (01) ==
PROVIDERS: Emergency Provider Physician Assistant; PCP Internal Medicine
DX: T40.1X1A Poisoning by heroin, accidental (unintentional), initial encounter (principal); R40.20 Unspecified coma; R11.10 Vomiting, unspecified
CPT/HCPCS: 96374; 99284; J2405

== ENCOUNTER 2021-05-19 02:46 | Outpatient (CLI) | payer OTHER, SELFPAY ==
[2021-05-19 13:18] LABS: Abs Immature Grans 0.03 10^3/uL (0.0-0.06); Absolute Basophil Count 0.02 10^3/uL (0.0-0.2); Absolute Eosinophil Count 0.13 10^3/uL (0.0-0.7); Absolute Lymphocyte Count 1.81 10^3/uL (1.2-3.4); Absolute Monocyte Count 0.57 10^3/uL (0.1-0.8); Absolute Neutrophil Count 4.72 10^3/uL (1.2-6.7); Basophils % 0.3; Eosinophils % 1.8; HCT 43.8 % (40.0-50.0); HGB 14.8 g/dL (13.5-17.5); Immature Grans % 0.4; Lymphocytes % 24.9; MCH 28.9 pg (27.0-33.0); MCHC 33.8 % (32.0-36.0); MCV 85.5 fL (80-95); MPV 9.4 fL (8.0-11.0); Monocytes % 7.8; Neutrophils % 64.8; Nucleated RBC 0 %; Platelet Count 250 10^3/uL (130-400); RBC 5.12 10^6/uL (4.36-5.78); RDW 12.1 % (11.8-14.1); WBC 7.28 10^3/uL (4.4-10.8)
[2021-05-19 14:30] LABS: ALT 106 U/L (16-63); AST 46 U/L (15-37); Albumin 3.6 g/dL (3.4-5.0); Alkaline Phosphatase 84 U/L (46-116); Anion Gap 7.8 mmol/L (3-11); BUN 15 mg/dL (7-18); Bilirubin, Total 0.4 mg/dL (0.2-1.0); CO2 27.2 mmol/L (21.0-32.0); CREATININE 0.9 mg/dL (0.70-1.30); Calcium 8.7 mg/dL (8.5-10.1); Chloride 104 mmol/L (98-107); GGT 58 U/L (15-85); Glucose 107 mg/dL (74-106); Potassium 4.2 mmol/L (3.5-5.1); Sodium 139 mmol/L (136-145); Total Protein 6.9 g/dL (6.4-8.2)
[2021-05-22 10:23] LABS: Hepatitis B Surface Ag Negative (Negative)
[2021-05-22 10:33] LABS: HBs Antibody, Quant 7.7 mIU/mL (See Note); Hepatitis B Surface Ab Negative (See Note)
[2021-05-22 10:49] LABS: Hepatitis C Ab w Rflx HCV PCR Negative (Negative)
[2021-05-22 10:51] LABS: HIV-1/2 Ag & Ab Screen Negative (Negative)
[2021-05-22 11:09] LABS: Hep B Core Antibody Negative (Negative)
[2021-05-22 11:16] LABS: Hep A Total Ab w Rflx IgM Negative (Negative)
== END 2021-05-19 02:47 | disposition home or self-care (01) ==
LOC: LBO 02:46
PROVIDERS: PCP Internal Medicine; Visit Provider Physician Assistant
DX: F11.20 Opioid dependence, uncomplicated (principal); Z11.4 Encounter for screening for human immunodeficiency virus [HIV]; Z11.59 Encounter for screening for other viral diseases
CPT/HCPCS: 36415; 80053; 86704; 86706; 86709; 86803; 87340; 87389; 82977; 85025

== ENCOUNTER 2021-12-01 12:52 | Emergency (ER) | payer OTHER, SELFPAY ==
[2021-12-01 12:58] VITALS: BP 141/91; PULSE 84; RESP 17; TEMP 36.6; O2SAT 97
--- NOTE | 2021-12-01 13:26 | ED.GENADUL_ITS ---
Discharge Plan Disposition Patient Disposition: HOME Condition: Improving Discharge Details Clinical Impression: Laceration of left index finger Primary Care Provider: Paul Campos ED Provider: David Panday Home Meds and New Rx's Prescriptions: Continued Narcan 4 mg/actuation spray,non-aerosol 4 mg intranasal Q2-3M PRN (Reason: opioid overdose) Qty: 2 0RF Rx Instructions: spray 1 dose into ONE nostril; alternate nostrils w each dose until help arrives Discharge Instructions Instructions: Finger Laceration (ED) Additional Instructions: Leave current bandage in place for 3 days then may remove, gently wash and pat dry, replace bandage. Return in 7 to 10 days for suture removal. Return sooner for any acute concerns. Medical Decision Making This is a 26-year-old male who presents from work where he cut his left index finger on a conveyor belt. His tetanus is up-to-date. He has a shallow avulsion with supple laceration overlying the volar aspect of the left finger. No deep tissue involved. Patient was anesthetized, irrigated and in a bloodless field, with suture repair requiring 8 interrupted sutures. Discussed with patient that the proximal portion of the wound will likely desiccate and require some healing by secondary intention. Patient encouraged to return in 7 to 10 days for removal HPI General Mode of arrival: ambulatory . Date/Time Provider Initiated Documentation: 12/01/21 12:53 . Limitations to Documentation: no limitations . Information obtained by: patient . History of Present Illness 26 year old M presents to the emergency department with the chief complaint of Left index finger laceration, described as mild, Quality is described as dull and constant, and is localized to the left and upper extremity. Patient reports no radiation. Patient started experiencing this minute(s) and it has been constant. No relieving factors improve symptom(s), No exacerbating factors reported . Patient notes no other symptoms.. Patient did receive the following treatments prior to arrival, other (Dressing was applied) Related Data Home Medications Medication Instructions Recorded Confirmed naloxone 4 mg/actuation nasal 4 mg intranasal Q2-3M PRN opioid 01/26/21 spray (Narcan) overdose #2 ea Previous Rx's Medication Instructions Recorded naloxone 4 mg/actuation nasal 4 mg intranasal Q2-3M PRN opioid 01/26/21 spray (Narcan) overdose #2 ea Allergies Allergy/AdvReac Type Severity Reaction Status Date / Time Penicillins Allergy rash Verified 01/26/21 07:26 Sulfa (Sulfonamide AdvReac Intermediate Hives Verified 01/26/21 07:26 Antibiotics) General Stated Complaint: Laceration GRACIE: 4 Review of Systems Narrative: Tetanus up-to-date, no motor weakness or numbness. 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 Father Substance abuse Grandmother No problems noted. Grandmother No problems noted. Grandmother No problems noted. Social History Smoking/Tobacco Use Status: Current every day Tobacco Type: smokeless tobacco Smoking risk assessment performed?: Yes Alcohol Intake: current Alcohol Intake frequency: a few times a month Drug use: Occasionally Substance use type: crack/cocaine and heroin Details: uses about once a week Current gender identity: male Do you feel safe at home: Yes Do you feel safe in your relationship?: Yes Exam Narrative Exam Narrative: GEN: awake, alert, oriented 3. Pleasant, well groomed, interactive. HEAD: Normocephalic, atraumatic ENT: Mucous membranes moist, oropharynx unremarkable, External ear exam unremarkable EYES: PERRL, EOMI EXT: Full ROM, no edema, no rash. There is a laceration on the volar aspect of the left finger begins at the distal phalanx and is shallow avulsing the skin across the middle phalanx. Distal motor function is normal. Cap refill less than 2 seconds. Sensation intact Neuro: Grossly normal neurologic exam, conversant, interactive. Psych: Speech fluent, thoughts congruent, affect normal Course Vital Signs Vital signs: Vital Signs Temperature 36.6 C 12/01/21 12:58 Pulse 84 12/01/21 12:58 Respiratory Rate 17 12/01/21 12:58 Blood Pressure 141/91 H 12/01/21 12:58 Pulse Oximetry 97 12/01/21 12:58 Temperature 36.6 C 12/01/21 12:58 Temperature Source Temporal Artery Scan 12/01/21 12:58 Pulse 84 12/01/21 12:58 Respiratory Rate 17 12/01/21 12:58 Blood Pressure 141/91 H 12/01/21 12:58 Blood Pressure Position Sitting 12/01/21 12:58 Pulse Oximetry 97 12/01/21 12:58 Oxygen Delivery Method Room Air 12/01/21 12:58 Oxygen Flow Rate 0 12/01/21 12:58 Pain Level 9 12/01/21 12:58 Procedures Laceration Laceration 1: Site: upper extremity Side (If applicable): left Size (cm): 4 Description: linear and flap Depth: simple, single layer Local Anesthetic: Lidocaine 1% Amount of anesthesia used (mL): 2 Pre-repair: irrigated extensively and deep structures intact Skin layer closed with: nylon Size (cm): 4-0 Number of sutures: 8 Technique: simple, interrupted
[2021-12-01 14:21] VITALS: BP 146/103; PULSE 81; RESP 18; TEMP 36.2; O2SAT 98
--- NOTE | 2021-12-04 11:21 | NUR.NOTE ---
Nursing Note: Patient called asking about work; whether or not he should be working. Dr. Jodie Hamm will review chart and speak with patient.
--- NOTE | 2021-12-04 11:29 | W.EDPROG ---
Date of service: 12/04/21 Time of Service: 11:25 Medical Decision Making Patient called requesting a work note due to difficulty performing task because of laceration. Phone conversation revealed that patient denies any new or worsening symptoms, denies any signs of infection. Reviewed patient initial presentation and given avulsion with laceration will recommend light duty for the remainder of this week until sutures are removed. Patient states that this is reasonable given his typical work duties and significant heavy lifting. Return and follow-up precautions were discussed Discharge Plan Disposition Patient Disposition: HOME Condition: Improving Discharge Details Clinical Impression: Laceration of left index finger Primary Care Provider: Paul Campos ED Provider: David Pandya Home Meds and New Rx's Prescriptions: Continued Narcan 4 mg/actuation spray,non-aerosol 4 mg intranasal Q2-3M PRN (Reason: opioid overdose) Qty: 2 0RF Rx Instructions: spray 1 dose into ONE nostril; alternate nostrils w each dose until help arrives Discharge Instructions Instructions: Finger Laceration (ED) Additional Instructions: Leave current bandage in place for 3 days then may remove, gently wash and pat dry, replace bandage. Return in 7 to 10 days for suture removal. Return sooner for any acute concerns. Stand Alone Forms: Work Release Discharge Data Discharge Date/Time-TO BE ENTERED AT DEPARTURE: 12/01/21 14:21
== END 2021-12-01 14:21 | disposition home or self-care (01) ==
PROVIDERS: Emergency Provider Emergency Medicine; PCP Internal Medicine
DX: S61.211A Laceration without foreign body of left index finger without damage to nail, initial encounter (principal); W31.89XA Contact with other specified machinery, initial encounter
CPT/HCPCS: 12002

== ENCOUNTER 2021-12-10 12:23 | Emergency (ER) | payer OTHER, SELFPAY ==
[2021-12-10 12:30] VITALS: BP 155/93; PULSE 73; RESP 16; TEMP 35.9; O2SAT 95
--- NOTE | 2021-12-10 12:37 | ED.GENADUL_ITS ---
Discharge Plan Disposition Patient Disposition: HOME Condition: Stable Discharge Details Clinical Impression: Visit for suture removal Primary Care Provider: Paul Campos ED Provider: López Aponte Home Meds and New Rx's Prescriptions: No Action Narcan 4 mg/actuation spray,non-aerosol 4 mg intranasal Q2-3M PRN (Reason: opioid overdose) Qty: 2 0RF Rx Instructions: spray 1 dose into ONE nostril; alternate nostrils w each dose until help arrives clonidine HCl 0.1 mg tablet 0.1 tab PO BID Label Comments: TAKE ONE TABLET BY MOUTH TWICE A DAY buprenorphine-naloxone 2-0.5 mg tablet, sublingual 2 tab SUBLINGUAL BID Label Comments: PLACE TWO TABLETS UNDER THE TONGUE EVERY DAY FOR 28 DAYS Discharge Instructions Additional Instructions: Continue to watch for any signs of infection and return immediately if that occurs. As discussed call the orthopedic office for arrangement of follow-up appointment if you still have decreased range of motion that you would like further assessed and evaluated Referrals: [id number] [Provider Group] Discharge Data Discharge Date/Time-TO BE ENTERED AT DEPARTURE: 12/10/21 12:51 Medical Decision Making Patient presenting to the emergency department for suture removal. Wound is well-appearing and feeling appropriately. community health nurse staff remove sutures without any issue or problem. Patient did complain of slight decrease of flexion of the digit along with some paresthesia over the wound. Did offer patient orthopedic consult for further evaluation and at this time he declined and. He stated he would prefer to wait longer to see what improvement would happened now that sutures have been removed and with normal function. Patient encouraged to return with any new or worsening symptoms or call the orthopedic office for reassessment. After discussion of diagnosis and plan of care patient has no further needs, questions, or concerns and states clear understanding to return to the emergency department for any worsening symptoms. This documentation was generated using [employer]ation system, please disregard any oddities of phrase or misspellings. HPI General Mode of arrival: ambulatory . Date/Time Provider Initiated Documentation: 12/10/21 12:32 . Limitations to Documentation: no limitations . Information obtained by: patient, RN notes reviewed and old records reviewed . History of Present Illness 26 year old M presents to the emergency department with the chief complaint of Suture removal, Quality is described as other (Denies pain ), Patient started experiencing this day(s) (10) Patient notes no other symptoms.. Patient did receive the following treatments prior to arrival, none Related Data Home Medications Medication Instructions Recorded Confirmed naloxone 4 mg/actuation nasal 4 mg intranasal Q2-3M PRN opioid 01/26/21 spray (Narcan) overdose #2 ea buprenorphine 2 mg-naloxone 0.5 mg 2 tab sublingual BID 12/10/21 12/10/21 sublingual tablet clonidine HCl 0.1 mg tablet 0.1 tab PO BID 12/10/21 12/10/21 Previous Rx's Medication Instructions Recorded naloxone 4 mg/actuation nasal 4 mg intranasal Q2-3M PRN opioid 01/26/21 spray (Narcan) overdose #2 ea Allergies Allergy/AdvReac Type Severity Reaction Status Date / Time Penicillins Allergy rash Verified 12/10/21 12:33 Sulfa (Sulfonamide AdvReac Intermediate Hives Verified 12/10/21 12:33 Antibiotics) General Stated Complaint: SutureRem GRACIE: 4 Review of Systems Constitutional Constitutional: Denies chills and Denies fever(s) Musculoskeletal Musculoskeletal: Denies arthralgias Integumentary/Breasts Skin/Breast: Denies rash and Denies skin swelling PFSH All Active Problems Accidental heroin overdose (Acute) Laceration of left index finger (Acute) Visit for suture removal (Acute) No-show for appointment (Acute) Nicotine dependence (Acute) 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 Father Substance abuse Grandmother No problems noted. Grandmother No problems noted. Grandmother No problems noted. Social History Smoking/Tobacco Use Status: Current every day Tobacco Type: smokeless tobacco Smoking risk assessment performed?: Yes Alcohol Intake: current Alcohol Intake frequency: a few times a month Drug use: Occasionally Substance use type: crack/cocaine and heroin Details: uses about once a week Current gender identity: male Do you feel safe at home: Yes Do you feel safe in your relationship?: Yes Exam Const General: cooperative, comfortable and no acute distress Orientation: alert, awake and oriented x3 Resp Effort & Inspection: normal respiratory effort, able to speak in complete sentences and no respiratory distress Skin General skin exam: no rashes or lesions noted Rashes: no rashes Trauma: laceration (healing well laceration without erythema, purulence, or dehiscence.) Neuro General: patient alert, patient awake and patient oriented x3 Extrem General: normal exam except as noted Left upper extremity: hand Details: tendon exam abnormal (Slight reduction of left index finger PIP flexion) and other (Slight decrease of sensation over laceration) Course Vital Signs Vital signs: Vital Signs Temperature 35.9 C L 12/10/21 12:30 Pulse 73 12/10/21 12:30 Respiratory Rate 16 12/10/21 12:30 Blood Pressure 155/93 H 12/10/21 12:30 Pulse Oximetry 95 12/10/21 12:30 Temperature 35.9 C L 12/10/21 12:30 Temperature Source Temporal Artery Scan 12/10/21 12:30 Pulse 73 12/10/21 12:30 Respiratory Rate 16 12/10/21 12:30 Respiratory Effort 12/10/21 12:32 Blood Pressure 155/93 H 12/10/21 12:30 Pulse Oximetry 95 12/10/21 12:30 Oxygen Delivery Method Room Air 12/10/21 12:30 Oxygen Flow Rate 0 12/10/21 12:30 Pain Level 0 12/10/21 12:30
== END 2021-12-10 12:51 | disposition home or self-care (01) ==
PROVIDERS: Emergency Provider Nurse Practitioner Family; PCP Internal Medicine
DX: S61.211D Laceration without foreign body of left index finger without damage to nail, subsequent encounter (principal); X58.XXXD Exposure to other specified factors, subsequent encounter; Z48.02 Encounter for removal of sutures

== ENCOUNTER 2022-05-22 16:31 | Outpatient (CLI) | payer OTHER, SELFPAY ==
--- NOTE | 2022-05-22 15:30 | DI.RAD_ITS ---
Exam(s) XR CHEST 2V PA LATERAL EXAM: XR CHEST 2V PA LATERAL CLINICAL HISTORY: evaluate pathology SOB R06.02 TECHNIQUE: 2D digital imaging was performed of the chest. Two images were obtained. PA and lateral views were obtained. COMPARISON: CR CHEST 2 VIEWS PA,LAT from 04/18/2016 FINDINGS: MEDIASTINUM: Normal. HEART: Normal. PULMONARY VASCULATURE: Normal. LUNGS: Clear. PLEURAL SPACE: No pleural effusion or pneumothorax. BONE:Within normal limits for the patient's age. OTHER FINDINGS:Normal. IMPRESSION: No acute pulmonary findings. DATA REPOSITORY: RADIATION DOSE DELIVERED:
== END 2022-05-22 16:51 ==
PROVIDERS: PCP Internal Medicine; Visit Provider Nurse Practitioner Family
DX: R06.02 Shortness of breath (principal)
CPT/HCPCS: 71046

== ENCOUNTER 2022-08-09 02:52 | Outpatient (CLI) | payer MEDICAID, SELFPAY ==
[2022-08-09 16:50] LABS: Abs Immature Grans 0.01 10^3/uL (0.0-0.06); Absolute Basophil Count 0.03 10^3/uL (0.0-0.2); Absolute Eosinophil Count 0.16 10^3/uL (0.0-0.7); Absolute Lymphocyte Count 3.07 10^3/uL (1.2-3.4); Absolute Monocyte Count 0.58 10^3/uL (0.1-0.8); Absolute Neutrophil Count 4.72 10^3/uL (1.2-6.7); Basophils % 0.4; Eosinophils % 1.9; HCT 43.9 % (40.0-50.0); HGB 14.8 g/dL (13.5-17.5); Immature Grans % 0.1; Lymphocytes % 35.8; MCHC 33.7 % (32.0-36.0); MCV 86 fL (80-95); MPV 8.8 fL (8.0-11.0); Monocytes % 6.8; Platelet Count 263 10^3/uL (130-400); RDW 12.5 % (11.8-14.1); RDW-SD 39.2 fL; WBC 8.57 10^3/uL (4.4-10.8)
[2022-08-09 18:07] LABS: Vitamin D 25 Total 23.7 ng/mL (30-100)
[2022-08-09 18:12] LABS: TSH 2.29 uIU/mL (0.36-3.74); Vitamin B12 845 pg/mL (193-986)
== END 2022-08-09 02:53 | disposition home or self-care (01) ==
PROVIDERS: PCP Internal Medicine; Visit Provider Nurse Practitioner Psychiatric/Mental Health
DX: Z13.0 Encounter for screening for diseases of the blood and blood-forming organs and certain disorders involving the immune mechanism (principal); Z13.228 Encounter for screening for other metabolic disorders; Z13.21 Encounter for screening for nutritional disorder; Z13.29 Encounter for screening for other suspected endocrine disorder
CPT/HCPCS: 36415; 82306; 82607; 84443; 85025

== ENCOUNTER 2023-05-02 10:03 | Outpatient (REF) | payer MEDICAID, SELFPAY ==
[2023-05-12 13:25] LABS: Testosterone, Free 1.26 ng/dL (4.85-19.0); Testosterone, Total 38 ng/dL (240-950)
== END 2023-05-02 10:04 | disposition home or self-care (01) ==
LOC: NCHCN 10:03
PROVIDERS: PCP Family Medicine; Visit Provider Family Medicine
DX: R53.83 Other fatigue (principal)
CPT/HCPCS: 84402; 84403

== ENCOUNTER 2023-07-24 12:41 | Outpatient (REF) | payer MEDICAID, SELFPAY ==
[2023-07-24 15:17] LABS: TSH (W/Ref FT4) 3.17 uIU/mL (0.36-3.74)
[2023-08-01 16:50] LABS: Testosterone, Free 4.84 ng/dL (4.85-19.0); Testosterone, Total 137 ng/dL (240-950)
== END 2023-07-24 12:42 | disposition home or self-care (01) ==
LOC: NCHCN 12:41
PROVIDERS: PCP Family Medicine; Visit Provider Family Medicine
DX: R53.83 Other fatigue (principal)
CPT/HCPCS: 84402; 84403; 84443

== ENCOUNTER 2023-09-03 17:59 | Outpatient (REF) | payer MEDICAID, SELFPAY ==
[2023-09-04 18:15] LABS: FSH 3.4 mIU/mL (1.4-18.1); Prolactin 9.8 ng/mL (2.1-17.7)
== END 2023-09-03 18:00 | disposition home or self-care (01) ==
LOC: NCHCN 17:59
PROVIDERS: PCP Family Medicine; Visit Provider Family Medicine
DX: E29.1 Testicular hypofunction (principal)
CPT/HCPCS: 83001; 83002; 84146

== ENCOUNTER 2023-10-24 16:26 | Outpatient (REF) | payer MEDICAID, SELFPAY ==
[2023-10-28 11:24] LABS: Fentanyl Scr w/Rfx Confirm Negative ng/mL (<1)
[2023-10-30 04:50] LABS: Methylphenidate 84 ng/mL (Cutoff: 10); Ritalinic Acid 6773 ng/mL (Cutoff: 50)
== END 2023-10-24 16:27 | disposition home or self-care (01) ==
LOC: NCHCN 16:26
PROVIDERS: PCP Family Medicine; Visit Provider Family Medicine
DX: F90.9 Attention-deficit hyperactivity disorder, unspecified type (principal)
CPT/HCPCS: 80307; 80360

== ENCOUNTER 2024-05-29 01:23 | Outpatient (CLI) | payer OTHER, MEDICAID, SELFPAY ==
--- OUTSIDE RECORDS SUMMARY | 2024-05-29 01:39 | XMS_ITS | Encounter Summary ---
Author Organization [facility] Address [address] [place] [address] Care Team Providers Care Clean Out Driller Helper Name Role Phone Unknown, Provider Primary Care Provider Unaedson ilxochitl Encounter Details Date Type Department Care Team (Late st Contact Info) Description 05/11/2020 Lab Requisition [facility] Pathology & [place] [address] Outr Resulting Lab, Provider Social History Tobacco Use Types Packs/Day Years Used Date Smoking Tobacco: Never Assessed Sex and Gender Information Value Date Recorded Sex Assigned at Not on file Legal Sex Male 10:22 EST Gender Identity Not on file Sexual Orientation Not on file documented as of this encounter Plan of Treatment Not on file documented as of this encounter Procedures Procedure Name Priority Date/Time Associated Diagnosis Comments ZZCOVID-19 TEST [facility] PCR After X-Ray 04/13/2020 11:10 EDT COVID-19 TESTING After X-Ray 04/13/2020 11:1 0 EDT documented in this encounter Results * COVID-19 TEST [facility] PCR (04/13/2020 11:10 EDT) Swab ENTIRE NASOPHARYNX / Unknown 04/13/2020 11:10 EDT 06/03/2020 9:59 EST us Provider Outr Resulting Lab MICROBIOLOGY - GENER AL ORDERABLES Final Result [facility] [address] [place] [address] * COVID-19 TESTING (04/13/2020 11:10 EDT) COVID-19 rt-PCR Result Negative Negative 06/23/2020 10:41 EST [facility] Comment: This test has not been FDA cleared or approved. This test has been authorized by FDA under an EUA for use by authorized laboratories. This test has been authorized only for detection of nucleic acid from 2019-nCoV, not for any other viruses or pathogens. This test is only authorized for the duration of the declaration that circumstances exist justifying the authorization of emergency use of in vitro diagnostic tests for detection and/or diagnosis of 2019-nCoV under section 564(b)(1) of Act, 21 U.S.C ?? 360bbb-3(b) (1), unless the authorization is terminated or revoked sooner. Negative results do not preclude 2019-nCoV infection and should not be used as the sole basis for treatment or other patient management decisions. Negative results must be combined with clinical observations, patient history, and epidemiological information. Performed on the [employer] Fusion instrument Performing Lab [facility] 06/23/2020 10:41 EST [facility] Swab 04/13/2020 11:1 0 EDT 06/03/2020 9:59 EST us Provider Outr Resulting Lab MICROBIOLOGY - GENER AL ORDERABLES Final Result [facility] [address] [place] [address] documented in this encounter Visit Diagnoses Not on filedocumented in this encounter Care Teams Clean Out Driller Helper Relationship Specialty Start Date End Date Unknown, Provider, PCP - General 05/11/15 documented as of this encounter
--- OUTSIDE RECORDS SUMMARY | 2024-05-29 01:39 | XMS_ITS | Encounter Summary ---
Author Organization [facility] Address [address] [place] [address] Care Team Providers Care Cocktail Server Name Role Phone Unknown, Provider Primary Care Provider Fadumo jennings Encounter Details Date Type Department Care Team (Late st Contact Info) Description 05/19/2021 Lab Requisition [facility] Pathology & Laboratory Medicine - [address] [id number] Outr Resulting Lab, Provider Social History Tobacco Use Types Packs/Day Years Used Date Smoking Tobacco: Every Day Cigarettes Smokeless Tobacco: Never Alcohol Use Standard Drinks/Week Comments No 0 (1 standard drink = 0.6 oz pure alcohol) None for two weeks, usually 18 beers per week Sex and Gender Information Value Date Recorded Sex Assigned at Not on file Legal Sex Male 10:22 EST Gender Identity Not on file Sexual Orientation Not on file documented as of this encounter Plan of Treatment Not on file documented as of this encounter Procedures Procedure Name Priority Date/Time Associated Diagnosis Comments HEPATITIS C AB W REFLEX TO HCV RNA BY PCR Routine 05/19/2021 13:05 EST HEPATITIS A TOTAL ANTIBODY W REFLEX Routine 05/19/2021 13:05 EST HEPATITIS B CORE ANTIBODY (TOTAL) Routine 05/19/2021 13:05 EST HEPATITIS B SURFACE ANTIBODY Routine 05/19/2021 13:05 EST HEPATITIS B SURFACE ANTIGEN Routine 05/19/2021 13:05 EST documented in this encounter Results * HEPATITIS B SURFACE ANTIBODY (05/19/2021 13:05 EST) Hep B Surface Ab, Quantitative 7.7 See Note mIU/mL 05/22/2021 10:29 EST [facility] Comment: Reference Range for Hep B Surface Ab, Quant: Positive: >= 10.0 mIU/mL Negative: ??< 10.0 mIU/mL Patient is presumed to not be immune to infection with Hepatitis B Virus. Hep B Surface Ab, Qualitative Negative See Note 05/22/2021 10:29 EST [facility] Comment: Reference Range for Hep B Surface Ab, Qual: Unvaccinated: ??Negative Vaccinated: ??Positive Blood VENOUS BLOOD / Unknown 05/19/2021 13:05 EST 05/19/2021 21:27 EST us Provider Outr Resulting Lab CHEMISTRY & BLOOD GA S ORDERABLES Final Result Performing Organization Address [facility]/ZIP Co de Phone Number [facility] [address] [place] [address] * HEPATITIS B CORE ANTIBODY (TOTAL) (05/19/2021 13:05 EST) Hepatitis B Core Ab, Total Negative Negative 05/22/2021 11:04 EST [facility] Blood VENOUS BLOOD / Unknown 05/19/2021 13:05 EST 05/19/2021 21:27 EST us Provider Outr Resulting Lab CHEMISTRY & BLOOD GA S ORDERABLES Final Result [facility] [address] [place] [address] * HEPATITIS B SURFACE ANTIGEN (05/19/2021 13:05 EST) Hep B Surface Ag Negative Negative 05/22/2021 10:18 EST [facility] Blood VENOUS BLOOD / Unknown 05/19/2021 13:05 EST 05/19/2021 21:27 EST us Provider Outr Resulting Lab CHEMISTRY & BLOOD GA S ORDERABLES Final Result Performing Organization Address City/[facility]/ZIP Co de Phone Number [facility] [address] [place] [address] * HEPATITIS C AB W REFLEX TO HCV RNA BY PCR (05/19/2021 13:05 EST) Hep C Antibody Negative Negative 05/22/2021 10:44 EST [facility] Blood VENOUS BLOOD / Unknown 05/19/2021 13:05 EST 05/19/2021 21:27 EST us Provider Outr Resulting Lab CHEMISTRY & BLOOD GA S ORDERABLES Final Result Performing Organization Address [facility] Co de Phone Number [facility] [address] [place] [address] * HEPATITIS A TOTAL ANTIBODY W REFLEX (05/19/2021 13:05 EST) Hepatitis A Antibody, Total Negative Negative 05/22/2021 11:12 EST [facility] Blood VENOUS BLOOD / Unknown 05/19/2021 13:05 EST 05/19/2021 21:27 EST Narrative [facility] - 05/22/2021 11:12 EST The result of this assay can be falsely elevated (Positive) due to the consumption of Biotin. us Provider Outr Resulting Lab CHEMISTRY & BLOOD GA S ORDERABLES Final Result Performing Organization Address City/[facility]/ZIP Co de Phone Number [facility] [address] [place] [address] documented in this encounter Visit Diagnoses Not on filedocumented in this encounter Care Teams Cocktail Server Relationship Specialty Start Date End Date Unknown, Provider, PCP - General 05/11/15 documented as of this encounter
--- OUTSIDE RECORDS SUMMARY | 2024-05-29 01:39 | XMS_ITS | Encounter Summary ---
Author Organization [facility] Address [address] [place] [address] Care Team Providers Care Wet Finisher Name Role Phone Unknown, Provider Primary Care Provider Fadumo jennings Encounter Details Date Type Department Care Team (Late st Contact Info) Description 09/04/2023 Lab Requisition [facility] Pathology & Laboratory Medicine - [address] [id number] Outr Resulting Lab, Provider Social History Tobacco [...] Procedure Name Priority Date/Time Associated Diagnosis Comments PROLACTIN Routine 09/03/2023 14:10 EDT LH Routine 09/03/2023 14:10 EDT FSH Routine 09/03/2023 14:10 EDT documented in this encounter Results * LH (09/03/2023 14:10 EDT) Luteinizing Hormone 2.0 1.5 - 9.3 mIU/mL 09/04/2023 18:08 EDT [facility] Blood VENOUS BLOOD / Unknown 09/03/2023 14:10 EDT 09/04/2023 16:58 EDT us Provider Outr Resulting Lab CHEMISTRY & BLOOD GA S ORDERABLES Final Result [facility] [address] [place], [place] [id number] * FSH (09/03/2023 14:10 EDT) FSH 3.4 1.4 - 18.1 mIU/mL 09/04/2023 18:08 EDT [facility] Blood VENOUS BLOOD / Unknown 09/03/2023 14:10 EDT 09/04/2023 16:58 EDT us Provider Outr Resulting Lab CHEMISTRY & BLOOD GA S ORDERABLES Final Result Performing Organization Address City/[facility]/ZIP Co de Phone Number [facility] [address] [place] [address] * PROLACTIN (09/03/2023 14:10 EDT) Prolactin 9.8 2.1 - 17.7 ng/mL 09/04/2023 18:09 EDT [facility] Blood VENOUS BLOOD / Unknown 09/03/2023 14:10 EDT 09/04/2023 16:58 EDT us Provider Outr Resulting Lab CHEMISTRY & BLOOD GA S ORDERABLES Final Result [facility] [address] [place] [address] documented in this encounter Visit Diagnoses Not on filedocumented in this encounter Care Teams Wet Finisher Relationship Specialty Start Date End Date Unknown, Provider, PCP - General 05/11/15 documented as of this encounter
--- OUTSIDE RECORDS SUMMARY | 2024-05-29 01:39 | XMS_ITS | Encounter Summary ---
Author Organization [facility] Address [address] [place] [address] Care Team Providers Care Belting Cutter Name Role Phone Unknown, Provider Primary Care Provider Fadumo ilxochitl Encounter Details Date Type Department Care Team (Late st Contact Info) Description 10/25/2023 Lab Requisition [facility] Pathology & Laboratory Medicine - [facility] [address] [place], [place] [address] Outr Resulting Lab, Provider Social History Tobacco [...] Procedure Name Priority Date/Time Associated Diagnosis Comments FENTANYL SCREEN WITH REFLEX TO CONFIRMATION, U Routine 10/24/2023 16:19 EDT documented in this encounter Results * FENTANYL SCREEN WITH REFLEX TO CONFIRMATION, U (10/24/2023 16:19 EDT) Fentanyl Screen with Reflex to Confirmation, U Negative <1 ng/mL 10/28/2023 11:20 EDT [facility] Urine URINE / Unknown 10/24/2023 1 6:19 EDT 10/25/2023 17:33 EDT Narrative [facility] - 10/28/2023 11:20 EDT Testing performed by: [facility] [address], [address], [place] [address] Accordion Tuner: Nilay Madsen MD; CLIA # [id number] us Provider Outr Resulting Lab URINALYSIS ORDERABLE S Final Result [facility] [address], [address] [place] [address], [facility] [phone] documented in this encounter Visit Diagnoses Not on filedocumented in this encounter Care Teams Belting Cutter Relationship Specialty Start Date End Date Unknown, Provider, PCP - General 05/11/15 documented as of this encounter
--- OUTSIDE RECORDS SUMMARY | 2024-05-29 01:39 | XMS_ITS | Referral Summary ---
Author Organization [facility] Address [address] [place] [address] Care Team Providers Care Slubber Frame Changer Name Role Phone Unknown, Provider MD Primary Care Provider Unava ilable Allergies Active Allergy Reactions Criticality Noted Date Comments Penicillins Rash 05/17/2014 Has taken Amoxicillin with no problems Medications buprenorphine-na loxone (SUBOXONE) 8-2 mg tablet, sublingual Place 1 Tab under the tongue daily. Active HYDROXYZINE HCL ORAL Take by mouth. Active CLONIDINE HCL ORAL Take by mouth. Active ibuprofen (MOTRIN) 200 mg tablet Take 200 mg by mouth every 6 hours. Active TRAZODONE HCL (TRAZODONE ORAL) Take by mouth. Active docusate sodium (COLACE) 50 mg capsule Take 50 mg by mouth daily. Active MELATONIN ORAL Take by mouth. Active Social History Tobacco Use Types Packs/Day Years [...] on file Sexual Orientation Not on file Last Filed Vital Signs Vital Sign Reading Time Taken Comments Blood Pressure 124/70 05/17/2014 1037 EST Pulse 80 05/17/2014 1037 EST Temperature 36.9 ??C (98.5 ??F) 05/17/2014 1037 EST Respiratory Rate 14 05/17/2014 1037 EST Oxygen Saturation - - Inhaled Oxygen Concentration - - Weight - - Height - - Body Mass Index - - Plan of Treatment Not on file Procedures Procedure Name Priority Date/Time Associated Diagnosis Comments HEPATITIS C AB W REFLEX TO HCV RNA BY PCR Routine 05/19/2021 13:05 EST from Last 3 Months or Most Recently Relevant to Health Maintenance Results * HEPATITIS C AB W REFLEX TO HCV RNA BY PCR (05/19/2021 13:05 EST) Hep C Antibody Negative Negative 05/22/2021 10:44 EST [facility] Blood VENOUS BLOOD / Unknown 05/19/2021 13:05 EST 05/19/2021 21:27 EST us Provider Outr Resulting Lab CHEMISTRY & BLOOD GA S ORDERABLES Final Result [facility] [address] [place] [address] from Last 3 Months or Most Recently Relevant to Health Maintenance Care Teams Slubber Frame Changer Relationship Specialty Start Date End Date Unknown, Provider, PCP - General 05/11/15
--- OUTSIDE RECORDS SUMMARY | 2024-05-29 01:39 | XMS_ITS | Encounter Summary ---
Author Organization [facility] Address [address] [place] [address] Care Team Providers Care Anode Machine Operator Name Role Phone None, Provider Primary Care Provider Unavailabl e Encounter Details Date Type Department Care Team (Latest Contact Info) Description 05/06/2015 10:01 EST - 05/06/2015 23:59 EST Hospital Encounter [address] [address] Unknown, Provider, MD Discharge Disposition: Home or Self Care Social History Tobacco Use Types Packs/Day Years [...] on file documented as of this encounter Medications at Time of Discharge buprenorphine-nal oxone (SUBOXONE) 8-2 mg tablet, sublingual Place 1 Tab under the tongue daily. CLONIDINE HCL ORAL Take by mouth. docusate sodium (COLACE) 50 mg capsule Take 50 mg by mouth daily. HYDROXYZINE HCL ORAL Take by mouth. ibuprofen (MOTRIN) 200 mg tablet Take 200 mg by mouth every 6 hours. MELATONIN ORAL Take by mouth. TRAZODONE HCL (TRAZODONE ORAL) Take by mouth. documented as of this encounter Discharge Disposition Disposition Code Departure Means Destination Home or Self Shelter documented in this encounter Plan of Treatment Not on file documented as of this encounter Visit Diagnoses Not on filedocumented in this encounter Care Teams Anode Machine Operator Relationship Specialty Start Date End Date None, Provider PCP - General 05/17/14 05/10/15 documented as of this encounter
--- OUTSIDE RECORDS SUMMARY | 2024-05-29 01:39 | XMS_ITS | Encounter Summary ---
Author Organization [facility] Address [address] [place] [address] Care Team Providers Care Biomass Power Plant Superintendent Name Role Phone None, Provider Primary Care Provider Unavailabl e Encounter Details Date Type Department Care Team (Late st Contact Info) Description 05/06/2015 Results Only [facility] [phone] Jamel Canada, DO [address] [facility] [address] [address] [place], [place] [id number] Social History Tobacco Use Types Packs/Day Years [...] Procedure Name Priority Date/Time Associated Diagnosis Comments SURGICAL PATHOLOGY Routine 05/06/2015 21 :14 EST documented in this encounter Results * SURGICAL PATHOLOGY (05/06/2015 21:14 EST) Pathology Report: SURGICAL PATHOLOGY REPORT Reports generated via electronic interface contain original data; however they are lacking the format of the original report. Caution should be taken when reading/interpret ing unformatted reports. Name: ? JONATHAN SHAFFER ? Accession #: ? [id number] ? : ? 1995 (Age: 20) ??M ? Collect Date: ? 05/06/2015 ? Location: ? [facility] ? Receive Date: ? 05/06/2015 ? Provider: JAMEL CANADA DO Copy to: COBY DOMÍNGUEZ MD ? Final Pathologic Diagnosis: APPENDIX, APPENDECTOMY: - ??Acute appendicitis and periappendicitis. Document reviewed and electronically signed by: RYAN BAY MD Report ??Date: 05/11/2015 11:49 By the signature above, the attending physician certifies that he/she has personally conducted a gross and/or microscopic examination of the described specimens and rendered or confirmed the above diagnosis. Specimen(s) Received: Appendix Clinical History: Appendicitis Gross Description: ? Received in formalin labelled with proper patient identification (initials G, D) and appendix is a vermiform appendix (7.4 cm in length x 0.5 cm in diameter), with a minimal amount of attached mesoappendix. The proximal margin is stapled. The distal end is open and disrupted with no distal tip. ? The serosa is caraballo-brown and smooth. The cut surface is unremarkable. The average wall thickness is 0.2 cm with a perforation site at the distal tip. The lumen ranges from 0.4 cm to 0.1 cm in diameter and contains caraballo-brown fecalith. The proximal margin is inked blue. ? The section adjacent to the proximal stapled margin, two litigation claim representative cross sections and one-half of the longitudinally bisected end with perforation site are submitted in 1. Dr. Rosen 05/09/2015 11:54 AM End of Report [facility] 05/06/2015 21:1 4 EST 05/06/2015 21:14 EST us Jamel Canada DO PATHOLOGY ORDERABLES Fi nal Result [facility] [address] [place] [address] documented in this encounter Visit Diagnoses Not on filedocumented in this encounter Care Teams Biomass Power Plant Superintendent Relationship Specialty Start Date End Date None, Provider PCP - General 05/17/14 05/10/15 documented as of this encounter
--- OUTSIDE RECORDS SUMMARY | 2024-05-29 01:39 | XMS_ITS | Encounter Summary ---
Author Organization [facility] Address [address] [place] [address] Care Team Providers Care Information Systems Consultant Name Role Phone Unknown, Provider Primary Care Provider Fadumo jennings Encounter Details Date Type Department Care Team (Late st Contact Info) Description 05/19/2021 Lab Requisition [facility] Pathology & Laboratory Medicine - [facility] [address] [place], [place] [address] Outr Resulting Lab, Provider Social History Tobacco [...] Procedure Name Priority Date/Time Associated Diagnosis Comments HIV 1/2 ANTIGEN AND ANTIBODY, 4TH GENERATION Routine 05/19/2021 13:05 EST documented in this encounter Results * HIV 1/2 ANTIGEN AND ANTIBODY, 4TH GENERATION (05/19/2021 13:05 EST) HIV 1 and 2 Antibody/p24 Antigen, 4th Generation Negative Negative 05/22/2021 10:46 EST [facility] Comment:If acute HIV-1 infec tion is suspected in a high risk patient, submit plasma specimen for HIV-1 RNA quantitation test. Blood VENOUS BLOOD / Unknown 05/19/2021 13:05 EST 05/19/2021 21:27 EST Narrative [facility] - 05/22/2021 10:46 EST Fourth Generation assay performed on the [employer] XPT. us Provider Outr Resulting Lab IMMUNOLOGY AND SEROL OGY ORDERABLES Final Result [facility] [address] [place] [address] documented in this encounter Visit Diagnoses Not on filedocumented in this encounter Care Teams Information Systems Consultant Relationship Specialty Start Date End Date Unknown, Provider, PCP - General 05/11/15 documented as of this encounter
--- OUTSIDE RECORDS SUMMARY | 2024-05-29 01:39 | XMS_ITS | Encounter Summary ---
Author Organization [facility] Address [address] [place] [address] Care Team Providers Care Exercise Planner Name Role Phone None, Provider Primary Care Provider Unavailabl e Reason for Visit * Reason Comments Dental Pain Encounter Details Date Type Department Care Team (Latest Contact Info) Description 05/17/2014 10:26 EST - 05/17/2014 11:24 EST Hospital Encounter [facility] [address] [place] [address] Anna Figueroa NP [address] [place] [id number] Unknown, Provider, Pain, dental (Primary Dx) Discharge Disposition: Home or Self Care Social [...] on file documented as of this encounter Last Filed Vital Signs Vital Sign Reading Time Taken Comments Blood Pressure 124/70 05/17/2014 1037 EST Pulse 80 05/17/2014 1037 EST Temperature 36.9 ??C (98.5 ??F) 05/17/2014 1037 EST Respiratory Rate 14 05/17/2014 1037 EST Oxygen Saturation - - Inhaled Oxygen Concentration - - Weight - - Height - - Body Mass Index - - documented in this encounter Discharge Instructions * Attachments The following attachments cannot be sent through Care Everywhere. * TOOTH AND GUM PAIN (CHINESE) documented in this encounter Medications at Time of Discharge [...] TRAZODONE HCL (TRAZODONE ORAL) Take by mouth. clindamycin (CLEOCIN) 150 mg capsule Take 2 Caps by mouth every 8 hours for 7 days. 42 Cap 0 05/17/2014 05/24/2014 documented as of this encounter Ordered Prescriptions Prescription Sig Dispense Quantity Refills Last Filled Start Date End Date clindamycin (CLEOCIN) 150 mg capsule Take 2 Caps by mouth every 8 hours for 7 days. 42 Cap 0 05/17/2014 05/24/2014 documented in this encounter Discharge Disposition Disposition Code Departure Means Destination Home or Self Care documented in this encounter ED Notes * Bhakti Figueroa NP - 05/17/2014 1120 EST Images from the original note were not included. DOS: 05/17/2014 Chief Complaint Patient presents with ??? Dental Pain The patient is a 19 y.o. male who presents today with Dental Pain HPI Comments: Patient presents for a 2 day history of left lower dental pain. He believes his wisdom tooth is pushing through, and may be infected. He has been taking ibuprofen and his suboxone with some relief. He is currently at [facility]. He reports some chills, but denies any fever. He has been unable to afford dental care. The history is provided by the patient. Dental Pain Location: Lower Lower teeth location: 17/LL 3rd molar Severity: Severe Timing: Constant Progression: Worsening Chronicity: New Associated symptoms: facial pain and headaches Associated symptoms: no difficulty swallowing, no drooling, no facial swelling, no fever, no gum swelling, no neck swelling, no oral lesions and no trismus Review of Systems Constitutional: Positive for chills. Negative for fever. HENT: Negative for drooling, facial swelling and mouth sores. Gastrointestinal: Negative for nausea and vomiting. Neurological: Positive for headaches. Hematological: Negative for adenopathy. No current facility-administered medications for this encounter. Current Outpatient Prescriptions Medication Sig Dispense Refill ??? buprenorphine-naloxone (SUBOXONE) 8-2 mg tablet, sublingual Place 1 Tab under the tongue daily. ??? clindamycin (CLEOCIN) 150 mg capsule Take 2 Caps by mouth every 8 hours for 7 days. 42 Cap 0 ??? CLONIDINE HCL ORAL Take by mouth. ??? docusate sodium (COLACE) 50 mg capsule Take 50 mg by mouth daily. ??? HYDROXYZINE HCL ORAL Take by mouth. ??? ibuprofen (MOTRIN) 200 mg tablet Take 200 mg by mouth every 6 hours. ??? MELATONIN ORAL Take by mouth. ??? TRAZODONE HCL (TRAZODONE ORAL) Take by mouth. Allergies Allergen Reactions ??? Penicillins Rash Has taken Amoxicillin with no problems There are no active problems to display for this patient. Past Medical History Diagnosis Date ??? Anxiety ??? Heroin abuse History Substance Use Topics ??? Smoking status: Current Every Day Smoker -- 1.00 packs/day ??? Smokeless tobacco: Never Used ??? Alcohol Use: No Comment: None for two weeks, usually 18 beers per week History reviewed. No pertinent family history. BP 124/70 Pulse 80 Temp(Src) 98.5 ??F (36.9 ??C) (Temporal) Resp 14 Physical Exam Nursing note and vitals reviewed. Constitutional: He is oriented to person, place, and time. He appears well- developed and well-nourished. No distress. HENT: Mouth/Throat: There is tenderness and mild edema surrounding the left lower third molar. There is no fluctuance or drainage. Neck: Normal range of motion. Neck supple. Pulmonary/Chest: Effort normal. Lymphadenopathy: He has no cervical adenopathy. Neurological: He is alert and oriented to person, place, and time. Skin: Skin is warm and dry. Psychiatric: He has a normal mood and affect. Consult orders: None PCP: Provider None No results found for this visit on 05/17/14. Radiology orders: None Imaging Results None Procedures Course: A medical screening exam was performed. ? Pain from eruption of wisdom tooth, vs. Early infection. Patient to continue ibuprofen and RX forclindamycin given. Patient will FU with [facility] dental clinic. Disposition: Discharged The patient's pain was managed to an adequate level weighing risk vs. benefit of further medications. Upon departure from [facility], the patient's pain was 9 on a zero to ten scale. Condition at departure from the [facility] : Stable Final diagnoses: Pain, dental Dr. Pepito Ray was available for consultation during my care of this patient. [facility] 05/17/2014 11:20 * Yolette Escobedo RN - 05/17/2014 1049 EST Here today with dental pain x 2 days which patient describes as his wisdom tooth left lower mouth, also c/o swelling and difficulty chewing. Relates he has been taking Ibuprofen with some relief. Denies fever. Does not have a regular dentist. documented in this encounter Plan of Treatment Not on file documented as of this encounter Visit Diagnoses Diagnosis Pain, dental- Primary Unspecified disorder of the teeth and supporting structures documented in this encounter Historical Medications * This list may reflect changes made after this encounter. MELATONIN ORAL Take by mouth. docusate sodium (COLACE) 50 mg capsule Take 50 mg by mouth daily. TRAZODONE HCL (TRAZODONE ORAL) Take by mouth. ibuprofen (MOTRIN) 200 mg tablet Take 200 mg by mouth every 6 hours. CLONIDINE HCL ORAL Take by mouth. HYDROXYZINE HCL ORAL Take by mouth. buprenorphine-nal oxone (SUBOXONE) 8-2 mg tablet, sublingual Place 1 Tab under the tongue daily. added in this encounter Care Teams Exercise Planner Relationship Specialty Start Date End Date None, Provider PCP - General 05/17/14 05/10/15 documented as of this encounter
--- OUTSIDE RECORDS SUMMARY | 2024-05-29 01:39 | XMS_ITS | Clinical Summary ---
Author Organization [facility] Address [address] [place] [address] Care Team Providers Care Credit Correspondence Clerk Name Role Phone Unknown, Provider MD Primary [...] Active MELATONIN ORAL Take by mouth. Active Medical History Medical History Date Comments Anxiety Heroin abuse ([facility]) Social History Tobacco Use Types Packs/Day Years [...] on file Sexual Orientation Not on file Obstetrics History Last Filed Vital Signs Vital Sign Reading Time Taken Comments Blood Pressure 124/70 05/17/2014 1037 EST Pulse 80 05/17/2014 1037 EST Temperature 36.9 ??C (98.5 ??F) 05/17/2014 1037 EST Respiratory Rate 14 05/17/2014 1037 EST Oxygen Saturation - - Inhaled Oxygen Concentration - - Weight - - Height - - Body Mass Index - - Plan of Treatment Health Maintenance Due Date Last Done Comments Hepatitis B Vaccine (1 of 3 - 19+ 3-dose series) 04/26 COVID-19 Vaccine (2023- season) 2024 Hepatitis C Screen Completed 05/19/2021 Procedures Procedure Name Priority Date/Time Associated Diagnosis Comments HEPATITIS C AB W REFLEX TO HCV RNA BY PCR Routine 05/19/2021 13:05 EST from Last 3 Months or Most Recently Relevant to Health Maintenance Results * HEPATITIS C AB W REFLEX TO HCV RNA BY PCR (05/19/2021 13:05 EST) Hep C Antibody Negative Negative 05/22/2021 10:44 EST [facility] Blood VENOUS BLOOD / Unknown 05/19/2021 13:05 EST 05/19/2021 21:27 EST us Provider Outr Resulting Lab CHEMISTRY & BLOOD GA S ORDERABLES Final Result [facility] [address] [place] [address] from Last 3 Months or Most Recently Relevant to Health Maintenance Care Teams Credit Correspondence Clerk Relationship Specialty Start Date End Date Unknown, Provider, PCP - General 05/11/15
--- OUTSIDE RECORDS SUMMARY | 2024-05-29 01:40 | XMS_ITS | Data Portability ---
Author Organization MICHAEL - [employer], , [employer] - [facility] Address [address] [place] [address] Assessment Encounter Date Assessment Date Assessment LastModified by Organization Details LastModified Time 04/24/2021 04/24/2021 Telemedicine Information: This telmed (audio + visual) appointment provided a MAT prescription. Time Start: 108; Time End:118 Provider Location: home; Patient Location: office Telemedicine Consent Given (verbal): Y Lab Results Last UDS Result (Qual Screen): 04-17-21 NEG Buprenorphine and NO illicit drugs Last Confirmatory Test Result (LCMS/Quant): 04-17-21 N/A due to Negative UDS Last Buprenorphine Confirmation Test Result: Bup: N/A ng/ml & Norbup: N/A ng/ml Last LFT Result : needs labs Since Last Visit THIS PT IS BEING TREATED FOR OUD WITH BUPRENORPHINE AND IS SEEN WEEKLY. CURRENT PRESCRIPTION IS: buprenorphine/nalo xone 2mg films Bio/psycho/social Update: Nadeem is a 25y/o male with hx OUD (Rx bup/naloxone 2mg films) who presents today for his weekly visit. He continues to do very well, maintaining his sobriety with minimal cravings. OUD : Initial visit: 03/27/21 UDS negative for illicit substances: x4 Visit frequency: weekly x4 Last use 01/26/21 Takes dose around 1pm in the afternoon, reports waking up with muscle aches and generally feeling crummy, like how you feel in really sticky and humid weather. Feels better after he takes his dose. Reports cravings on two different occasions this past week, denies illicit use despite cravings. Denies other life stressors, work is going okay other than trying to change to first shift vs second shift. Tobacco: up to 1ppd Work: [employer], 2nd shift Counseling: MARIELENA Bloodwork : Forgot had to get done, will try to get done this week Assessment The patient's current phase of treatment is Stabilization phase, OUD. 1) Interpretation of Confirmatory (LCMS) Test Result: N/A due to NEG UDS 2) Interpretation of Last Buprenorphine Confirmation Test Result: N/A (new to care) 3) Medication Dose: Pt's dose will be changed at today's visit for the following reasons: breakthrough w/d sxs. 4) Markers of Recovery include: sustained abstinence 5) Counseling: Engaged in Counseling - through [facility] The patient does meet diagnostic criteria for opioid use disorder. The patient is responding to treatment with buprenorphine at OBOT level of care at this phase of treatment. The patient does continue to be a good candidate for this level of care. LFT will be repeated per our clinical protocol. Urine drug testing is ordered today with medical necessity as below. LAB ORDERS - Confirmatory testing for illicit substances or absence of prescribed buprenorphine. UNEXPECTED results on UDS may impact this patient's treatment plan. The following tests require confirmation via LCMS: Y POS for AMPHETAMINE Y POS for BENZODIAZEPINES Y POS for COCAINE Y POS for METHADONE Y POS for OPIATES W/FENTANYL Y POS for OXYCODONE ADDITIONAL LAB(S) REQUESTED - if indicated, please order the following: NONE Plan OUD : Increase buprenorphine/nalo xone from 2 to 4mgmg films daily. 7d Rx provided today d/t breakthrough w/d sxs. Continue counseling via [facility]. Patient's visit frequency should be weekly. Frequency of UDS and confirmatory test, if applicable, should be weekly. Treatment plan review or change includes continue current level of care. Referrals made today include none. Prescription monitoring program is reviewed. If reviewed, I have identified agents prescribed to the patient in addition to any issued by our program; the patient is counseled regarding any risk of combining sedating agents. Not available 04/24/2021 13:22:15 05/08/2021 05/08/2021 Telemedicine Information: This telmed (audio + visual) appointment provided a MAT prescription. Time Start: 115; Time End:123 Provider Location: home; Patient Location: office Telemedicine Consent Given (verbal): Y Lab Results Last UDS Result (Qual Screen): 04-24-21 NEG Buprenorphine and NO illicit drugs Last Confirmatory Test Result (LCMS/Quant): 04-24-21 N/A due to Negative UDS Last Buprenorphine Confirmation Test Result: Bup: N/A ng/ml & Norbup: N/A ng/ml Last LFT Result : needs labs Since Last Visit THIS PT IS BEING TREATED FOR OUD WITH BUPRENORPHINE AND IS SEEN WEEKLY. CURRENT PRESCRIPTION IS: buprenorphine/nalo xone 4mg films Bio/psycho/social Update: Nadeem is a 25y/o male with hx OUD (Rx bup/naloxone 2mg films) who presents today for his weekly visit. He continues to do very well, maintaining his sobriety with minimal cravings. Nadeem was COVID positive last week and unable to come to his visit last week and/or leave UDS. He does not have the $150 to pay today, but was seen anyway and given a 7 day script. He has [employer] insurance through his job which covers the medication, but apparently not office visits. Will work with him to figure out a plan moving forward, but stressed that he needs to be able to pay the $150 moving forward. He is in agreement. OUD : Initial visit: 03/27/21 UDS negative for illicit substances: x5 Visit frequency: weekly x5 Last use 01/26/21 Denies recent use. Tobacco: up to 1ppd Work: [employer], 2nd shift Counseling: MARIELENA, weekly Bloodwork : Forgot had to get done, will try to get done this week Assessment The patient's current phase of treatment is Stabilization phase, OUD. 1) Interpretation of Confirmatory (LCMS) Test Result: N/A due to NEG UDS 2) Interpretation of Last Buprenorphine Confirmation Test Result: No concern 3) Medication Dose: Pt's dose will be changed at today's visit for the following reasons: breakthrough w/d sxs. 4) Markers of Recovery include: sustained abstinence 5) Counseling: Engaged in Counseling - through [facility] The patient does meet diagnostic criteria for opioid use disorder. The patient is responding to treatment with buprenorphine at OBOT level of care at this phase of treatment. The patient does continue to be a good candidate for this level of care. LFT will be repeated per our clinical protocol. Urine drug testing is ordered today with medical necessity as below. LAB ORDERS - Confirmatory testing for illicit substances or absence of prescribed buprenorphine. UNEXPECTED results on UDS may impact this patient's treatment plan. The following tests require confirmation via LCMS: Y POS for AMPHETAMINE Y POS for BENZODIAZEPINES Y POS for COCAINE Y POS for METHADONE Y POS for OPIATES W/FENTANYL Y POS for OXYCODONE ADDITIONAL LAB(S) REQUESTED - if indicated, please order the following: NONE Plan OUD : Change to tabs: buprenorphine/nalo xone 4mgmg tabs daily. 7d Rx . Continue counseling via [facility]. Patient's visit frequency should be weekly. Frequency of UDS and confirmatory test, if applicable, should be weekly. Treatment plan review or change includes continue current level of care. Referrals made today include none. Prescription monitoring program is reviewed. If reviewed, I have identified agents prescribed to the patient in addition to any issued by our program; the patient is counseled regarding any risk of combining sedating agents. [email or web address] Not available 05/08/2021 13:25:33 05/15/2021 05/15/2021 Telemedicine Information: This telmed (audio + visual) appointment provided a MAT prescription. Time Start: 122; Time End:127 Provider Location: home; Patient Location: office Telemedicine Consent Given (verbal): Y Lab Results Last UDS Result (Qual Screen): 05-08-21 NEG Buprenorphine and NO illicit drugs Last Confirmatory Test Result (LCMS/Quant): N/A due to Negative UDS Last Buprenorphine Confirmation Test Result: 04-24-21 Bup: 54 ng/ml & Norbup: 173 ng/ml Last LFT Result : needs labs Since Last Visit THIS PT IS BEING TREATED FOR OUD WITH BUPRENORPHINE AND IS SEEN WEEKLY. CURRENT PRESCRIPTION IS: buprenorphine/nalo xone 4mg films Bio/psycho/social Update: Nadeem is a 25y/o male with hx OUD (Rx bup/naloxone 4mg films) who presents today for his weekly visit. He continues to do very well, maintaining his sobriety with minimal cravings. OUD : Initial visit: 03/27/21 UDS negative for illicit substances: x6 Visit frequency: weekly x6 Last use 01/26/21 Pt denies severe/persistent cravings, withdrawal symptoms, or adverse effects of medication. Feeling stable on current dose. Switched to tabs last week, Nadeem is pleased with this switch. 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 Alcohol: moderate use only, while watching football Tobacco: up to 1ppd Work: [employer], 2nd shift Counseling: MARIELENA, weekly Bloodwork : Forgot had to get done, will try to get done this week Assessment The patient's current phase of treatment is Stabilization phase, OUD. 1) Interpretation of Confirmatory (LCMS) Test Result: N/A due to NEG UDS 2) Interpretation of Last Buprenorphine Confirmation Test Result: No concern 3) Medication Dose: No report of severe or persistent cravings/withdrawa l symptoms. Pt will remain at current dose 4) Markers of Recovery include: sustained abstinence 5) Counseling: Engaged in Counseling - through [facility] The patient does meet diagnostic criteria for opioid use disorder. The patient is responding to treatment with buprenorphine at OBOT level of care at this phase of treatment. The patient does continue to be a good candidate for this level of care. LFT will be repeated per our clinical protocol. Urine drug testing is ordered today with medical necessity as below. LAB ORDERS - Confirmatory testing for illicit substances or absence of prescribed buprenorphine. UNEXPECTED results on UDS may impact this patient's treatment plan. The following tests require confirmation via LCMS: Y POS for AMPHETAMINE Y POS for BENZODIAZEPINES Y POS for COCAINE Y POS for METHADONE Y POS for OPIATES W/FENTANYL Y POS for OXYCODONE ADDITIONAL LAB(S) REQUESTED - if indicated, please order the following: NONE Plan OUD : Change to tabs: buprenorphine/nalo xone 4mgmg tabs daily. 7d Rx . Continue counseling via [facility]. Review that if able to get blood work done, will be able to transition to biweekly in two weeks. Patient's visit frequency should be weekly. Frequency of UDS and confirmatory test, if applicable, should be weekly. Treatment plan review or change includes continue current level of care. Referrals made today include none. Prescription monitoring program is reviewed. If reviewed, I have identified agents prescribed to the patient in addition to any issued by our program; the patient is counseled regarding any risk of combining sedating agents. [email or web address] Not available 05/15/2021 13:29:26 05/22/2021 05/22/2021 Telemedicine Information: This telmed (audio + visual) appointment provided a MAT prescription. Time Start: 107; Time End:112 Provider Location: home; Patient Location: office Telemedicine Consent Given (verbal): Y Lab Results Last UDS Result (Qual Screen): 05-15-21 NEG Buprenorphine and NO illicit drugs Last Confirmatory Test Result (LCMS/Quant): N/A due to Negative UDS Last Buprenorphine Confirmation Test Result: 04-24-21 Bup: 54 ng/ml & Norbup: 173 ng/ml Last LFT Result : needs labs Since Last Visit THIS PT IS BEING TREATED FOR OUD WITH BUPRENORPHINE AND IS SEEN WEEKLY. CURRENT PRESCRIPTION IS: buprenorphine/nalo xone 4mg tabs Bio/psycho/social Update: Nadeem is a 25y/o male with hx OUD (Rx bup/naloxone 4mg films) who presents today for his weekly visit. He continues to do very well, maintaining his sobriety with minimal cravings. OUD : Initial visit: 03/27/21 UDS negative for illicit substances: x7 Visit frequency: weekly x7 Pt denies severe/persistent cravings, withdrawal symptoms, or adverse effects of medication. Feeling stable on current dose. Alcohol: moderate use only, while watching football Tobacco: up to 1ppd Work: [employer], 2nd shift Counseling: MARIELENA Joya), weekly Bloodwork : Done 27/08/20 Assessment The patient's current phase of treatment is Stabilization phase, OUD. 1) Interpretation of Confirmatory (LCMS) Test Result: N/A due to NEG UDS 2) Interpretation of Last Buprenorphine Confirmation Test Result: No concern 3) Medication Dose: No report of severe or persistent cravings/withdrawa l symptoms. Pt will remain at current dose 4) Markers of Recovery include: sustained abstinence 5) Counseling: Engaged in Counseling - through [facility] The patient does meet diagnostic criteria for opioid use disorder. The patient is responding to treatment with buprenorphine at OBOT level of care at this phase of treatment. The patient does continue to be a good candidate for this level of care. LFT will be repeated per our clinical protocol. Urine drug testing is ordered today with medical necessity as below. LAB ORDERS - Confirmatory testing for illicit substances or absence of prescribed buprenorphine. UNEXPECTED results on UDS may impact this patient's treatment plan. The following tests require confirmation via LCMS: Y POS for AMPHETAMINE Y POS for BENZODIAZEPINES Y POS for COCAINE Y POS for METHADONE Y POS for OPIATES W/FENTANYL Y POS for OXYCODONE ADDITIONAL LAB(S) REQUESTED - if indicated, please order the following: NONE Plan OUD : Change to tabs: buprenorphine/nalo xone 4mgmg tabs daily. 14d Rx . Given stability and engagement in counseling, Nadeem appropriate to transition to biweekly visits. Continue counseling via [facility] with regular visits. Patient's visit frequency should be bi-weekly. Frequency of UDS and confirmatory test, if applicable, should be bi-weekly. Treatment plan review or change includes continue current level of care. Referrals made today include none. Prescription monitoring program is reviewed. If reviewed, I have identified agents prescribed to the patient in addition to any issued by our program; the patient is counseled regarding any risk of combining sedating agents. [email or web address] Not available 05/22/2021 13:12:27 06/05/2021 06/05/2021 Telemedicine Information: This telmed (audio + visual) appointment provided a MAT prescription. Time Start: 114; Time End:119 Provider Location: home; Patient Location: office Telemedicine Consent Given (verbal): Y Lab Results Last UDS Result (Qual Screen): 05-22-21 NEG Buprenorphine and NO illicit drugs Last Confirmatory Test Result (LCMS/Quant): N/A due to Negative UDS Last Buprenorphine Confirmation Test Result: 05-22-21 Bup: 17 ng/ml & Norbup: 18 ng/ml Last LFT Result : needs labs Since Last Visit THIS PT IS BEING TREATED FOR OUD WITH BUPRENORPHINE AND IS SEEN BI-WEEKLY. CURRENT PRESCRIPTION IS: buprenorphine/nalo xone 4mg tabs Bio/psycho/social Update: Nadeem is a 25y/o male with hx OUD (Rx bup/naloxone 4mg films) who presents today for his bi-weekly visit. He continues to do very well, maintaining his sobriety with minimal cravings. Nadeem says that he might be moving to [place] in the beginning of the year. He says that their landlord wants them to move out of their current apartment; his mom lives in [place] and his girlfriend wants to move down there. OUD : Initial visit: 03/27/21 Visit frequency: biweekly x2 UDS negative for illicit substances: x8+ Pt denies severe/persistent cravings, withdrawal symptoms, or adverse effects of medication. Feeling stable on current dose. 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 1) Interpretation of Confirmatory (LCMS) Test Result: N/A due to NEG UDS 2) Interpretation of Last Buprenorphine Confirmation Test Result: No concern 3) Medication Dose: No report of severe or persistent cravings/withdrawa l symptoms. Pt will remain at current dose 4) Markers of Recovery include: sustained abstinence 5) Counseling: Engaged in Counseling - through [facility] The patient does meet diagnostic criteria for opioid use disorder. The patient is responding to treatment with buprenorphine at OBOT level of care at this phase of treatment. The patient does continue to be a good candidate for this level of care. LFT will be repeated per our clinical protocol. Urine drug testing is ordered today with medical necessity as below. LAB ORDERS - Confirmatory testing for illicit substances or absence of prescribed buprenorphine. UNEXPECTED results on UDS may impact this patient's treatment plan. The following tests require confirmation via LCMS: Y POS for AMPHETAMINE Y POS for BENZODIAZEPINES Y POS for COCAINE Y POS for METHADONE Y POS for OPIATES W/FENTANYL Y POS for OXYCODONE ADDITIONAL LAB(S) REQUESTED - if indicated, please order the following: NONE Plan OUD : Continue buprenorphine/nalo xone 4mgmg tabs daily. 14d Rx . Continue regular counseling via [facility]. Patient's visit frequency should be bi-weekly. Frequency of UDS and confirmatory test, if applicable, should be bi-weekly. Treatment plan review or change includes continue current level of care. Referrals made today include none. Prescription monitoring program is reviewed. If reviewed, I have identified agents prescribed to the patient in addition to any issued by our program; the patient is counseled regarding any risk of combining sedating agents. [email or web address] Not available 06/05/2021 13:20:10 Plan of Treatment Reminders Order Date Submit Date Provider Last Modified By Organization Details Last Modified Time Details Appointments None recorded. Lab drug screen, urine 2020 021 [facility], [address] [place], [id number], 12:16:16 drug screen, urine 2020 [facility], [address] [place], [id number], 11:51:17 drug screen, urine 2020 [facility], [address] [place], [id number], 11:36:53 drug screen, urine 2020 [facility], [address] [place], [id number], 13:43:29 drug screen, urine 2020 [facility], [address] [place], [id number], 08:26:17 Referral None recorded. Procedures None recorded. Surgeries None recorded. Imaging None recorded. Medication Orders Suboxone 2 mg-0.5 mg sublingual film 2020 [facility], [address] [place] [address], [address], 15:29:55 buprenorphi ne 2 mg-naloxone 0.5 mg sublingual tablet 2020 [facility], [address] [place], [address], 15:30:10 buprenorphi ne 2 mg-naloxone 0.5 mg sublingual tablet 2020 [facility], [address] [place], [address], 13:27:03 buprenorphi ne 2 mg-naloxone 0.5 mg sublingual tablet 2020 [facility], [address] [place], [address], 13:11:26 buprenorphi ne 2 mg-naloxone 0.5 mg sublingual tablet 2020 021 [facility], [address] [place], [address], 13:18:52 Patient TargetsNo targets recorded. Patient Instructions Encounter Date Encounter Id Patient Instructions Last Modified By Organization Details Last Modified Time 06/05/2021 [id number] As part of your individualized treatment plan and program requirement, you will need to bring your correct prescription bottle and all used and unused medication and counseling verification to each appointment; > Agree to participate in counseling and bring counseling verification to each appointment; > Agree to present for random visits; > Agree to not falsify your urine specimens. Not available 05/31/2021 07:50:05 Education provid ed at today's visit included: Review of patient's individualized treatment plan; Review of program policies: RX, visit, counseling and DATA compliance; Review medication administration technique; Discussion proper care of medication/safety/ lock box; Counseling re: trigger avoidance, relapse prevention and the importance of developing a sober network; Counseling re safe sex and control; Review risk of BZD and BUP, as well as ETOH; Counseling re: Discovery & Drop out prevention in early recovery. [email or web address] Not available 05/31/2021 07:50:05 Reason for Referral None Reported. Results Created Date Observation Date Name Description Value Unit Range Abnormal Flag Note LastModifiedBy Organization Detail LastModifiedTime 03/27/2003/27/2021 [facility] amphetamines Negati ve NG/mL 1,000 Jordana loera d by RUI GOMEZ Not Available [facility] [address] [place], [id number], 03/29/2021 14:48:30 03/27/2003/27/2021 INITI AL PT SCRN benzodiazapi senait Negati ve NG/mL 200 Not Available [facility] [address] [place], [id number], 03/29/2021 14:48:30 03/27/20 21 03/27/2021 INITI AL PT SCRN buprenorphin e Negati ve NG/mL 5 abnormal Not Available [place] [address] [address] [place], [id number], 03/29/2021 14:48:30 03/27/20 21 03/27/2021 INITI AL PT SCRN cocaine metabolite Negati ve NG/mL 150 Not Available [place] [address] [address], [id number], 03/29/2021 14:48:30 03/27/20 21 03/27/2021 INITI AL PT SCRN opiates Negati ve NG/mL 300 Not Available [place] [address] [place], [address], 03/29/2021 14:48:30 03/27/20 21 03/27/2021 INITI AL PT SCRN oxycodone Negati ve NG/mL 300 Not Available [place] [address] [place], [address], 03/29/2021 14:48:30 03/27/20 21 03/27/2021 INITI AL PT SCRN fentanyl Negati ve NG/mL 2 Not Available [place] [address] [place], [address], 03/29/2021 14:48:30 03/27/20 21 03/27/2021 INITI AL PT SCRN ethyl alcohol Negati ve mg/dL 10 Not Available [place] [address] [place], [address], 03/29/2021 14:48:30 03/27/20 21 03/27/2021 INITI AL PT SCRN methadone metabolite Negati ve NG/mL 300 Not Available [place] [address] [place], [address], 03/29/2021 14:48:30 03/27/20 21 03/27/2021 INITI AL PT SCRN urine creatinine 160.8 mg/dL >20 Not Available [place] [address] [address] [place], [id number], 03/29/2021 14:48:30 03/27/20 21 03/27/2021 INITI AL PT SCRN urine pH 5.10 4.5-9. 0 Not Available [place] [address] [address], [address], 03/29/2021 14:48:30 03/27/20 21 03/27/2021 INITI AL PT SCRN specific gravity 1.023 1.003- 1.035 Not Available [place] [address] [address] [place], [id number], 03/29/2021 14:48:30 04/03/20 21 04/03/2021 BUPRE NORPH INE PT SCREE JESUS amphetamines Negati ve NG/mL 1,000 Elect millie loera d by RUI GOMEZ Not Available [place] [address] [place], [address], 04/05/2021 10:51:28 04/03/20 21 04/03/2021 BUPRE NORPH INE PT SCREE JESUS benzodiazapi senait Negati ve NG/mL 200 Not Available [facility] [address] [place], [address], 04/05/2021 10:51:28 04/03/20 21 04/03/2021 BUPRE NORPH INE PT SCREE JESUS buprenorphin e Positi ve NG/mL 5 Not Available [facility] [address] [place], [address], 04/05/2021 10:51:28 04/03/20 21 04/03/2021 BUPRE NORPH INE PT SCREE JESUS cocaine metabolite Negati ve NG/mL 150 Not Available [facility] [address] [place], [address], 04/05/2021 10:51:28 10/18/20 21 04/03/2021 BUPRE NORPH INE PT SCREE JESUS opiates Negati ve NG/mL 300 Not Available [place] [address] [place], [address], 04/05/2021 10:51:28 04/03/20 21 04/03/2021 BUPRE NORPH INE PT SCREE JESUS oxycodone Negati ve NG/mL 300 Not Available [place] [address] [place], [address], 04/05/2021 10:51:28 04/03/20 21 04/03/2021 BUPRE NORPH INE PT SCREE JESUS fentanyl Negati ve NG/mL 2 Not Available [place] [address] [place], [address], 04/05/2021 10:51:28 04/03/20 21 04/03/2021 BUPRE NORPH INE PT SCREE JESUS ethyl alcohol Negati ve mg/dL 10 Not Available [place] [address] [place], [address], 04/05/2021 10:51:28 04/03/20 21 04/03/2021 BUPRE NORPH INE PT SCREE JESUS methadone metabolite Negati ve NG/mL 300 Not Available [place] [address] [place], [address], 04/05/2021 10:51:28 04/03/20 21 04/03/2021 BUPRE NORPH INE PT SCREE JESUS urine creatinine 199.9 mg/dL >20 Not Available [place] [address] [place], [address], 04/05/2021 10:51:28 04/03/20 21 04/03/2021 BUPRE NORPH INE PT SCREE JESUS urine pH 5.80 4.5-9. 0 Not Available [place] [address] [place], [address], 04/05/2021 10:51:28 04/03/20 21 04/03/2021 BUPRE NORPH INE PT SCREE JESUS specific gravity 1.023 1.003- 1.035 Not Available [place] [address] [place], [address], 04/05/2021 10:51:28 04/10/20 21 04/10/2021 [facility] JESUS amphetamines Negati ve NG/mL 1,000 Elect millie loera d by RUI GOMEZ Not Available [place] [address] [place], [address], 04/12/2021 14:29:50 04/10/20 21 04/10/2021 [facility] J[facility]US benzodiazapi senait Negati ve NG/mL 200 Not Available [facility] [place], [address], 04/12/2021 14:29:50 04/10/20 21 04/10/2021 [facility] PT SCREE JESUS buprenorphin e Positi ve NG/mL 5 Not Available [facility] [place], [address], 04/12/2021 14:29:50 04/10/20 21 04/10/2021 [facility] PT SCREE JESUS cocaine metabolite Negati ve NG/mL 150 Not Available [facility] [address] [place], [address], 04/12/2021 14:29:50 04/10/20 21 04/10/2021 [facility] PT SCREE JESUS opiates Negati ve NG/mL 300 Not Available [facility] 12 [place], [address], 04/12/2021 14:29:50 04/10/20 21 04/10/2021 [facility] JESUS oxycodone Negati ve NG/mL 300 Not Available [place] [address] Mark Curtis MICHAEL Barrios, [address], 04/12/2021 14:29:50 04/10/20 21 04/10/2021 [facility] JESUS fentanyl Negati ve NG/mL 2 Not Available [place] [address] Mark Curtis MICHAEL Barrios, [address], 04/12/2021 14:29:50 04/10/20 21 04/10/2021 [facility] JESUS ethyl alcohol Negati ve mg/dL 10 Not Available [place] [address] Mark Curtis MICHAEL Barrios, [address], 04/12/2021 14:29:50 04/10/20 21 04/10/2021 [facility] JESUS methadone metabolite Negati ve NG/mL 300 Not Available [place] [address] [place], [address], 04/12/2021 14:29:50 04/10/20 21 04/10/2021 [facility] JESUS urine creatinine 96.2 mg/dL >20 Not Available [place] [address] Mark Curtis MICHAEL Barrios, [address], 04/12/2021 14:29:50 04/10/20 21 04/10/2021 [facility] PT SCR[facility] JESUS urine pH 8.10 4.5-9. 0 Not Available [place] [address] [place], [address], 04/12/2021 14:29:50 04/10/20 21 04/10/2021 [facility] JESUS specific gravity 1.014 1.003- 1.035 Not Available [place] [address] [place], [address], 04/12/2021 14:29:50 04/17/20 21 04/17/2021 [facility] J[facility]US amphetamines Negati ve NG/mL 1,000 Elect millie loera d by LOW DENIS ATKINSON Not Available [place] [address] [place], [address], 04/20/2021 07:24:34 04/17/20 21 04/17/2021 [facility] JESUS benzodiazapi senait Negati ve NG/mL 200 Not Available [place] [address] [place], [address], 04/20/2021 07:24:34 04/17/20 21 04/17/2021 [facility] PT SCREE JESUS buprenorphin e Positi ve NG/mL 5 Not Available [place] [address] [place], [address], 04/20/2021 07:24:34 04/17/20 21 04/17/2021 [facility] SCR[facility] JESUS cocaine metabolite Negati ve NG/mL 150 Not Available [place] [address] [place], [address], 04/20/2021 07:24:34 04/17/20 21 04/17/2021 [facility] JESUS opiates Negati ve NG/mL 300 Not Available [place] [address] [place], [address], 04/20/2021 07:24:34 04/17/20 21 04/17/2021 [facility] JESUS oxycodone Negati ve NG/mL 300 Not Available [place] [address] [place], [address], 04/20/2021 07:24:34 04/17/20 21 04/17/2021 [facility] PT SCR[facility] JESUS fentanyl Negati ve NG/mL 2 Not Available [place] [address] [place], [address], 04/20/2021 07:24:34 04/17/20 21 04/17/2021 [facility] PT SCREE JESUS ethyl alcohol Negati ve mg/dL 10 Not Available [facility] [place], [address], 04/20/2021 07:24:34 04/17/20 21 04/17/2021 [facility] S[facility] JESUS methadone metabolite Negati ve NG/mL 300 Not Available [facility] 12 [place], [address], 04/20/2021 07:24:34 04/17/20 21 04/17/2021 [facility] JESUS urine creatinine 191.0 mg/dL >20 Not Available [place] [address] [place], [address], 04/20/2021 07:24:34 04/17/20 21 04/17/2021 [facility] PT SCR[facility] JESUS urine pH 5.20 4.5-9. 0 Not Available [place] [address] [place], [address], 04/20/2021 07:24:34 04/17/20 21 04/17/2021 [facility] JESUS specific gravity 1.023 1.003- 1.035 Not Available [place] [address] [place], [address], 04/20/2021 07:24:34 04/24/20 21 04/24/2021 [facility] amphetamines Negati ve NG/mL 1,000 Jordana garrett by LOW DENIS ATKINSON Not Available [place] [address] [place], [address], 2021 12:16:16 04/24/20 21 04/24/2021 [facility] JESUS benzodiazapi senait Negati ve NG/mL 200 Not Available [facility] 12 [place], [address], 2021 12:16:16 04/24/20 21 04/24/2021 [facility] PT SCR[facility] JESUS buprenorphin e Positi ve NG/mL 5 Not Available [facility] [place], [address], 2021 12:16:16 04/24/20 21 04/24/2021 [facility] SCR[facility] JESUS cocaine metabolite Negati ve NG/mL 150 Not Available [facility] [place], [address], 2021 12:16:16 04/24/20 21 04/24/2021 [facility] JESUS opiates Negati ve NG/mL 300 Not Available [facility] [place], [address], 2021 12:16:16 04/24/20 21 04/24/2021 [facility] JESUS oxycodone Negati ve NG/mL 300 Not Available [facility] [place], [address], 2021 12:16:16 04/24/20 21 04/24/2021 [facility] S[facility] JESUS fentanyl Negati ve NG/mL 2 Not Available [facility] [place], [address], 2021 12:16:16 04/24/20 21 04/24/2021 [facility] PT S[facility] JESUS ethyl alcohol Negati ve mg/dL 10 Not Available [facility] [place], [address], 2021 12:16:16 04/24/20 21 04/24/2021 [facility] JESUS methadone metabolite Negati ve NG/mL 300 Not Available [place] [address] [place], [address], 2021 12:16:16 04/24/20 21 04/24/2021 [facility] J[facility]US urine creatinine 56.5 mg/dL >20 Not Available [place] [address] [place], [address], 2021 12:16:16 04/24/20 21 04/24/2021 [facility] JESUS urine pH 5.70 4.5-9. 0 Not Available [place] [address] [place], [address], 2021 12:16:16 04/24/20 21 04/24/2021 [facility]US specific gravity 1.009 1.003- 1.035 Not Available [place] [address] Sophie Flowers MICHAEL, [address], 2021 12:16:16 04/24/20 21 04/24/2021 PRESC RIBED DRUG CONFI RMATI ON BUPRE NORPH INE 1, QN, U buprenorphin e 54.0 NG/mL 10 Elect millie loera d by [facility] Not Available [place] [address] Sophie Flowers MICHAEL, [address], 04/28/2021 09:01:59 04/24/20 21 04/24/2021 PRESC RIBED DRUG CONFI RMATI ON BUPRE [facility]PH INE 1, QN, U norbuprenorp kareem 173.3 NG/mL 10 Not Available [place] [address] Sophie Flowers MICHAEL, [address], 04/28/2021 09:01:59 04/24/20 21 04/24/2021 PRESC RIBED DRUG CONFI RMATI ON BUPRE NORPH INE 1, QN, U legend Abbrev iation s LOW - Detec kenny but unqua ntifi able OLR - Outsi de of linea r range ATR - Addit ional Testi ng Requi red Not Available [place] [address] [place], [address], 04/28/2021 09:01:59 04/24/20 21 04/24/2021 PRES RIBED DRUG CONFI RMATI ON BUPRE NORPH INE 1, QN, U billing only ([id number]) Billin g Only Not Available [facility] [place], [address], 04/28/2021 09:01:59 05/08/20 21 05/08/2021 [facility] PT SCREE JESUS amphetamines Negati ve NG/mL 1,000 Elect millie loera d by [facility] Not Available [place] [address] [place], [address], 05/10/2021 11:51:17 05/08/20 21 05/08/2021 [facility] PT SCREE JESUS benzodiazapi senait Negati ve NG/mL 200 Not Available [facility] [place], [address], 05/10/2021 11:51:17 05/08/20 21 05/08/2021 B[facility] PT SCREE JESUS buprenorphin e Positi ve NG/mL 5 Not Available [facility] [place], [address], 05/10/2021 11:51:17 05/08/20 21 05/08/2021 BUPRE [facility] PT SCREE JESUS cocaine metabolite Negati ve NG/mL 150 Not Available [facility] [place], [address], 05/10/2021 11:51:17 05/08/20 21 05/08/2021 [facility] PT SCREE JESUS opiates Negati ve NG/mL 300 Not Available [facility] [place], [address], 05/10/2021 11:51:17 05/08/20 21 05/08/2021 B[facility] PT SCREE JESUS oxycodone Negati ve NG/mL 300 Not Available [facility] [place], [address], 05/10/2021 11:51:17 05/08/20 21 05/08/2021 [facility] PT SCREE JESUS fentanyl Negati ve NG/mL 2 Not Available [facility] [place], [address], 05/10/2021 11:51:17 05/08/20 21 05/08/2021 B[facility] PT SCREE JESUS ethyl alcohol Negati ve mg/dL 10 Not Available [facility] [place], [address], 05/10/2021 11:51:17 05/08/20 21 05/08/2021 [facility] PT SCREE JESUS methadone metabolite Negati ve NG/mL 300 Not Available [facility] [place], [address], 05/10/2021 11:51:17 05/08/20 21 05/08/2021 [facility] PT SCREE JESUS urine creatinine 159.3 mg/dL >20 Not Available [place] [address] [place], [address], 05/10/2021 11:51:17 05/08/20 21 05/08/2021 [facility] PT SCREE JESUS urine pH 6.20 4.5-9. 0 Not Available [place] [address] [place], [address], 05/10/2021 11:51:17 05/08/20 21 05/08/2021 [facility] PT SCREE JESUS specific gravity 1.020 1.003- 1.035 Not Available [place] [address] [place], [address], 05/10/2021 11:51:17 05/15/20 21 05/15/2021 [facility] PT SCREE JESUS amphetamines Negati ve NG/mL 1,000 Elect millie garrett by [facility] Not Available [place] [address] [place], [address], 05/17/2021 11:36:53 05/15/20 21 05/15/2021 B[facility]RE [facility] PT SCREE JESUS benzodiazapi senait Negati ve NG/mL 200 Not Available [place] [address] [place], [address], 05/17/2021 11:36:53 05/15/20 21 05/15/2021 BUPRE [facility] PT SCREE JESUS buprenorphin e Positi ve NG/mL 5 Not Available [place] [address] [place], [address], 05/17/2021 11:36:53 05/15/20 21 05/15/2021 BUPRE [facility] PT SCREE JESUS cocaine metabolite Negati ve NG/mL 150 Not Available [place] [address] [place], [address], 05/17/2021 11:36:53 05/15/20 21 05/15/2021 BUPRE [facility] PT SCREE JESUS opiates Negati ve NG/mL 300 Not Available [place] [address] [place], [address], 05/17/2021 11:36:53 05/15/20 21 05/15/2021 BUPRE [facility] PT SCREE JESUS oxycodone Negati ve NG/mL 300 Not Available [place] [address] [place], [address], 05/17/2021 11:36:53 05/15/20 21 05/15/2021 B[facility] PT SCREE JESUS fentanyl Negati ve NG/mL 2 Not Available [place] [address] [place], [address], 05/17/2021 11:36:53 05/15/20 21 05/15/2021 BUPRE [facility] PT SCREE JESUS ethyl alcohol Negati ve mg/dL 10 Not Available [facility] 12 [place], [address], 05/17/2021 11:36:53 05/15/20 21 05/15/2021 BUPRE [facility] PT SCREE JESUS methadone metabolite Negati ve NG/mL 300 Not Available [facility] 12 [place], [address], 05/17/2021 11:36:53 05/15/20 21 05/15/2021 B[facility] PT SCREE JESUS urine creatinine 182.3 mg/dL >20 Not Available [place] [address] [place], [address], 05/17/2021 11:36:53 05/15/20 21 05/15/2021 B[facility] PT SCREE JESUS urine pH 5.60 4.5-9. 0 Not Available [place] [address] [place], [address], 05/17/2021 11:36:53 05/15/20 21 05/15/2021 BUPRE [facility] PT SCREE JESUS specific gravity 1.024 1.003- 1.035 Not Available [place] [address] [place], [address], 05/17/2021 11:36:53 05/22/20 21 05/22/2021 B[facility] PT SCREE JESUS amphetamines Negati ve NG/mL 1,000 Jordana garrett by [facility] Not Available [place] [address] [place], [address], 05/24/2021 13:43:29 05/22/20 21 05/22/2021 BUPRE [facility]PH INE PT SCREE EJSUS benzodiazapi senait Negati ve NG/mL 200 Not Available [facility] [place], [address], 05/24/2021 13:43:29 05/22/20 21 05/22/2021 BUPRE [facility] PT SCREE JESUS buprenorphin e Positi ve NG/mL 5 Not Available [place] [address] [place], [address], 05/24/2021 13:43:29 05/22/20 21 05/22/2021 BUPRE [facility] PT SCREE JESUS cocaine metabolite Negati ve NG/mL 150 Not Available [place] [address] [place], [address], 05/24/2021 13:43:29 05/22/20 21 05/22/2021 BUPRE [facility] PT SCREE JESUS opiates Negati ve NG/mL 300 Not Available [facility] [place], [address], 05/24/2021 13:43:29 05/22/20 21 05/22/2021 BUPRE [facility] PT SCREE JESUS oxycodone Negati ve NG/mL 300 Not Available [facility] [place], [address], 05/24/2021 13:43:29 05/22/20 21 05/22/2021 BUPRE [facility] PT SCREE JESUS fentanyl Negati ve NG/mL 2 Not Available [facility] [place], [address], 05/24/2021 13:43:29 05/22/20 21 05/22/2021 BUPRE [facility] PT SCREE JESUS ethyl alcohol Negati ve mg/dL 10 Not Available [facility] [place], [address], 05/24/2021 13:43:29 05/22/20 21 05/22/2021 BUPRE [facility] PT SCREE JESUS methadone metabolite Negati ve NG/mL 300 Not Available [place] [address] [place], [address], 05/24/2021 13:43:29 05/22/20 21 05/22/2021 BUPRE [facility] PT SCREE JESUS urine creatinine 123.6 mg/dL >20 Not Available [place] [address] Deionezio [place], [address], 05/24/2021 13:43:29 05/22/20 21 05/22/2021 BUPRE [facility] PT SCREE JESUS urine pH 6.20 4.5-9. 0 Not Available [place] [address] [place], [address], 05/24/2021 13:43:29 05/22/20 21 05/22/2021 BUPRE [facility] PT SCREE JESUS specific gravity 1.014 1.003- 1.035 Not Available [place] [address] [place], [address], 05/24/2021 13:43:29 05/22/20 21 05/22/2021 PRESC RIBED DRUG CONFI RMATI ON BUPRE NORPH INE 1, QN, U buprenorphin e 17.2 NG/mL 10 Elect millie loera d by [facility] Not Available [place] [address] [place], [address], 05/29/2021 14:32:03 05/22/20 21 05/22/2021 PRESC RIBED DRUG CONFI RMATI ON BUPRE NORPH INE 1, QN, U norbuprenorp kareem 18.8 NG/mL 10 Not Available [place] [address] [place], [address], 05/29/2021 14:32:03 05/22/20 21 05/22/2021 [facility] RIBED DRUG CONFI RMATI ON BUPRE NORPH INE 1, QN, U legend Abbrev iation s LOW - Detec kenny but unqua ntifi able OLR - Outsi de of linea r range ATR - Addit ional Testi ng Requi red Not Available [place] [address] [place], [address], 05/29/2021 14:32:03 05/22/20 21 05/22/2021 PRES RIBED DRUG CONFI RMATI ON BUPRE NORPH INE 1, QN, U billing only ([id number]) Billin g Only Not Available [facility] [place], [address], 05/29/2021 14:32:03 06/05/20 21 06/05/2021 BUPRE NORPH INE PT SCREE JESUS amphetamines Negati ve NG/mL 1,000 Elect millie loera d by [facility] Not Available [place] [address] [place], [address], 06/08/2021 08:26:17 06/05/20 21 06/05/2021 BUPRE NORPH INE PT SCREE JESUS benzodiazapi senait Negati ve NG/mL 200 Not Available [facility] [place], [address], 06/08/2021 08:26:17 06/05/20 21 06/05/2021 BUPRE NORPH INE PT SCREE JESUS buprenorphin e Positi ve NG/mL 5 Not Available [facility] [place], [address], 06/08/2021 08:26:17 06/05/20 21 06/05/2021 BUPRE NORPH INE PT SCREE JESUS cocaine metabolite Negati ve NG/mL 150 Not Available [facility] [place], [address], 06/08/2021 08:26:17 06/05/20 21 06/05/2021 BUPRE [facility]PH INE PT SCREE JESUS opiates Negati ve NG/mL 300 Not Available [place] [address] [place], [address], 06/08/2021 08:26:17 06/05/20 21 06/05/2021 BUPRE NORPH INE PT SCREE JESUS oxycodone Negati ve NG/mL 300 Not Available [place] [address] [place], [address], 06/08/2021 08:26:17 06/05/20 21 06/05/2021 BUPRE NORPH INE PT SCREE JESUS fentanyl Negati ve NG/mL 2 Not Available [place] [address] [place], [address], 06/08/2021 08:26:17 06/05/20 21 06/05/2021 BUPRE NORPH INE PT SCREE JESUS ethyl alcohol Negati ve mg/dL 10 Not Available [place] [address] [place], [address], 06/08/2021 08:26:17 06/05/20 21 06/05/2021 BUPRE NORPH INE PT SCREE JESUS methadone metabolite Negati ve NG/mL 300 Not Available [place] [address] [place], [address], 06/08/2021 08:26:17 06/05/20 21 06/05/2021 BUPRE NORPH INE PT SCREE JESUS urine creatinine 116.0 mg/dL >20 Not Available [place] [address] [place], [address], 06/08/2021 08:26:17 06/05/20 21 06/05/2021 BUPRE NORPH INE PT SCREE JESUS urine pH 8.00 4.5-9. 0 Not Available [place] [address] [place], [address], 06/08/2021 08:26:17 06/05/20 21 06/05/2021 BUPRE NORPH INE PT SCREE JESUS specific gravity 1.014 1.003- 1.035 Not Available [facility] [address] [place], [address], 06/08/2021 08:26:17 Result Notes None recorded. Problems Name Problem SNOMED Code Status Onset Date Resolution Date Notes Provider Name and Address Organization Details Recorded Time Opioid dependence 67952346 Active 2020 SASKIA Elizalde [address] [place] [address], [phone], [facility], 13:16:27 Depressive disorder 85661332 Completed 202003/27/2021 SASKIA Elizalde [address] [place] [address], [phone], [facility], 13:16:55 Problem Notes None recorded. Procedures Surgical History Date Name Laterality Status Provider Name and Address Organization Details Recorded Time 06/05/2021 70671, G0480, G0481 completed DUYEN HO NP [address] [place] [address], [phone], [facility], 05/31/2021 07:50:05 04/10/2021 27494, G0480, G0481 completed [facility], 04/06/2021 08:54:15 04/03/2021 10855, G0480, G0481 completed SASKIA Elizalde [address] [place] [address], [phone], [facility], 03/31/2021 21:41:46 03/27/2021 55246, G0480, G0481 completed [facility], 03/22/2021 08:24:06 Imaging Results None recorded. Procedure Notes None recorded. Medical Equipment None Reported. Allergies Allergen ID Allergen Name Allergen Category Reaction Reaction Severity Criticality Documentation Date Start Date Code Code System Note Provider Name and Address Organization Details Recorded Time 6766 Substance with sulfonami de structure and antibacte rial mechanism of action (substanc e) medicatio n hives Not available Not available 03/27/2021 92757 8003 SNOMED SASKIA Elizalde [address] [place], [address], [facility] [employer] [facility], 13:16:11 6767 Medicinal product containin g penicilli n and acting as antibacte rial agent (product) medicatio n rash Not available Not available 03/27/2021 70242 05 SASKIA Negron [address] [facility] [place], [address], [facility] [employer] [facility], 13:16:20 Medications Name Sig Start Date Stop Date Status Note LastModified by Organization Details LastModified Time doxycycline hyclate 100 mg capsule TAKE ONE CAPSULE BY MOUTH TWICE A DAY FOR 7 DAYS FOR WOUND DRAINAGE. RECOMMEND PROBIOTIC OR YOGURT WHILE USING ANTIBIOTI CS. 03/28 completed Not Available Not Available Not Available ibuprofen 800 mg tablet TAKE ONE TABLET BY MOUTH TWO TIMES A DAY NEEDED FOR MODERATE PAIN 03/28 completed Not Available Not Available Not Available aspirin 81 mg tablet,ty yed release TAKE ONE TABLET BY MOUTH ONCE DAILY FOR 14 DAYS TO PREVENT BLOOD CLOT 03/28 completed Not Available Not Available Not Available ondansetron 4 mg disintegrat ing tablet DISSOLVE ONE TABLET ON TONGUE EVERY 6 HOURS NEEDED FOR NAUSEA OR VOMITING 03/28 completed Not Available Not Available Not Available buprenorphi ne 2 mg-naloxone 0.[address] TWO TABLETS UNDER THE TONGUE EVERY DAY active Not Available Not Available No t Available buprenorphi ne 2 mg-naloxone 0.[address] TWO FILMS UNDER THE TONGUE EVERY DAY FOR 7 DAYS 05/08 completed Not Available Not Available Not Available Vitals Date Recorded Body temperature Oxygen saturation Oxygen saturation in Arterial blood by Pulse oximetry Heart rate Provider Name and Address Organization Details Last Updated DateTime 04/24/2021 98.1 [degF] 97 % 97 % 112 /min Gianna Gerard [facility] [employer] [facility], 13:03:09 Date Recorded Body temperature Oxygen saturation Oxygen saturation in Arterial blood by Pulse oximetry Heart rate Systolic blood pressure Diastolic blood pressure Provider Name and Address Organization Details Last Updated DateTime 1 98 [degF] 98 % 98 % 106 /min 128 mm[Hg] 68 mm[Hg] Brynn [facility] [employer], 13:20:31 Date Recorded Body temperature Oxygen saturation Oxygen saturation in Arterial blood by Pulse oximetry Heart rate Systolic blood pressure Diastolic blood pressure Provider Name and Address Organization Details Last Updated DateTime 1 96 [degF] 99 % 99 % 89 /min 130 mm[Hg] 68 mm[Hg] Brynn [facility] [employer] [facility], 13:10:09 Social History Question Answer Notes LastModified by Organizat ion Details LastModified Time Tobacco Smoking Status Current Every Day Smoker SASKIA Elizalde [address] [place] [address], [phone], [facility] [employer], 03/27/2021 13:23:34 What Is Your Level Of Alcohol Consumption? 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 15 Information not available 03/27/2021 How Much Tobacco Do You Smoke? 0.5 PPD Information not available 03/27/2021 Has Tobacco Cessation Counseling Been Provided? Yes Information not available 03/27/2021 On What Date Was Tobacco Cessation Counseling Provided? 03/27/2021 Information not available 03/27/2021 Sex: Unknown Functional Status None recorded. Mental Status None recorded. Family History Relationship Description Onset Age of this Age Resolved Age Notes LastModified by Organization Details LastModified Time Father Hypertensive disorder Not available 2020 13:17:58 Father Opioid dependence Not available 03/27 13:18:19 Maternal Uncle Cocaine abuse Not available 2020 13:18:44 Medical History Condition Response Opioid Dependence Y Opioid Abuse Y Past Encounters Encounter ID Performer Location Encounter Start Date Encounter Closed Date Diagnosis/Indication Diagnosis SNOMED-CT Code Diagnosis ICD10 Code [id number] SASK[facility] Elizalde [facility] [place] [address] 03/27/2021 12:59:44 03/27/2021 13:58:56 Opioid dependence 51907288 F11.20 [id number] DUYEN HO NP [facility] [place] [address] 04/03/2021 14:15:57 04/03/2021 14:35:37 Opioid dependence 48824290 F11.20 [id number] DUYEN HO NP [facility] [place] [address] 04/10/2021 12:56:10 04/10/2021 13:08:37 Opioid dependence 34003719 F11.20 [id number] DUYEN HO NP [facility] [place] [address] 04/17/2021 12:57:10 04/17/2021 13:09:42 Opioid dependence 56427816 F11.20 [id number] DUYEN HO NP [facility] [place] [address] 04/24/2021 13:01:40 04/24/2021 13:20:35 Opioid dependence 08706719 F11.20 [id number] DUYEN HO NP [facility] [place] [address] 05/08/2021 13:14:00 05/08/2021 13:27:30 Opioid dependence 68939186 F11.20 [id number] DUYEN HO NP [facility] [address] [facility] [place] [address] 05/15/2021 13:18:17 05/15/2021 13:29:07 Opioid dependence 68094083 F11.20 [id number] DUYEN HO NP [facility] [address] [facility] [place] [address] 05/22/2021 13:07:03 05/22/2021 13:14:35 Opioid dependence [id number] F11.20 [id number] DUYEN HO NP [facility] [id number] [facility] [place] [address] 06/05/2021 13:06:29 06/05/2021 13:20:21 Opioid dependence [id number] F11.20 Health Concerns Section Related Observation LastModified by Organization Detai ls LastModified Time None Recorded Concern Status LastModified by Organization Details LastModified Time None Recorded Advance Directives Directive None Recorded Payers Encounter Date Sequence Insurance Name Policy Number Policy Ghosh Covered Member ID Ghosh Member ID Guarantor Name 04/24/2021 1 [facility] (PPO) [id number] Nadeem Fanny [id number] Nadeem Fanny 05/08/2021 1 [employer] (PPO) [id number] Nadeem Fanny [id number] Nadeem Fanny 05/15/2021 1 [employer] (PPO) [id number] Nadeem Fanny [id number] Nadeem Fanny 05/22/2021 1 [employer] (PPO) [id number] Nadeem Fanny [id number] Nadeem Fanny 06/05/2021 1 [employer] (PPO) [id number] Nadeem Fanny [id number] Nadeem Fanny Notes Date Note Type Note Provider Name and Address Organization Details Recorded Time 04/24/2021 text/html The patient repo rts {{doing better doing well struggling*}} since last visit and {{denies* reports}} slip or relapse. MAT HPIThey {{deny report*}} cravings for opiates and {{deny* report}} opiates use since their last visit.They {{deny* report}} cravings for other substances and {{deny* report}} other substance use since their last visit.Triggers {{are* are not}} identified and any alleviating factors to identified triggers are discussed.Withdrawal symptoms {{are are not*}} present, but are reported. MAT Administration and Program AdherenceThe patient {{is* is not}} compliant with prescribed buprenorphine dose and {{can* can not}} describe proper medication administration and technique.The patient {{denies* reports}} side effects from the medication.There {{are* are not}} other support systems in place for this patient. There {{is is no*}} concern for diversion. DUYEN HO NP [address] [place], [id number], [facility], 04/24/2021 13:23:05 05/08/2021 text/html The patient repo rts {{doing better* doing well struggling}} since last visit and {{denies* reports}} slip or relapse. MAT HPIThey {{deny* report}} cravings for opiates and {{deny* report}} opiates use since their last visit.They {{deny* report}} cravings for other substances and {{deny* report}} other substance use since their last visit.Triggers {{are* are not}} identified and any alleviating factors to identified triggers are discussed.Withdrawal symptoms {{are are not*}} present, but are reported. MAT Administration and Program AdherenceThe patient {{is* is not}} compliant with prescribed buprenorphine dose and {{can* can not}} describe proper medication administration and technique.The patient {{denies* reports}} side effects from the medication.There {{are* are not}} other support systems in place for this patient. There {{is is no*}} concern for diversion. DUYEN HO NP [address] [place], [phone], [facility], 05/08/2021 13:29:45 05/15/2021 text/html The patient repo rts {{doing better doing well* struggling}} since last visit and {{denies* reports}} slip or relapse. MAT HPIThey {{deny* report}} cravings for opiates and {{deny* report}} opiates use since their last visit.They {{deny* report}} cravings for other substances and {{deny* report}} other substance use since their last visit.Triggers {{are* are not}} identified and any alleviating factors to identified triggers are discussed.Withdrawal symptoms {{are are not*}} present, but are reported. MAT Administration and Program AdherenceThe patient {{is* is not}} compliant with prescribed buprenorphine dose and {{can* can not}} describe proper medication administration and technique.The patient {{denies* reports}} side effects from the medication.There {{are* are not}} other support systems in place for this patient. There {{is is no*}} concern for diversion. DUYEN OH NP [address] [place], [phone], [employer], 05/15/2021 13:29:57 05/22/2021 text/html The patient repo rts {{doing better doing well* struggling}} since last visit and {{denies* reports}} slip or relapse. MAT HPIThey {{deny* report}} cravings for opiates and {{deny* report}} opiates use since their last visit.They {{deny* report}} cravings for other substances and {{deny* report}} other substance use since their last visit.Triggers {{are* are not}} identified and any alleviating factors to identified triggers are discussed.Withdrawal symptoms {{are are not*}} present, but are reported. MAT Administration and Program AdherenceThe patient {{is* is not}} compliant with prescribed buprenorphine dose and {{can* can not}} describe proper medication administration and technique.The patient {{denies* reports}} side effects from the medication.There {{are* are not}} other support systems in place for this patient. There {{is is no*}} concern for diversion. DUYEN HO NP [address] [place], [phone], [employer] [facility], 05/22/2021 13:34:56 06/05/2021 text/html The patient repo rts {{doing better doing well* struggling}} since last visit and {{denies* reports}} slip or relapse. MAT HPIThey {{deny* report}} cravings for opiates and {{deny* report}} opiates use since their last visit.They {{deny* report}} cravings for other substances and {{deny* report}} other substance use since their last visit.Triggers {{are* are not}} identified and any alleviating factors to identified triggers are discussed.Withdrawal symptoms {{are are not*}} present, but are reported. MAT Administration and Program AdherenceThe patient {{is* is not}} compliant with prescribed buprenorphine dose and {{can* can not}} describe proper medication administration and technique.The patient {{denies* reports}} side effects from the medication.There {{are* are not}} other support systems in place for this patient. There {{is is no*}} concern for diversion. DUYEN HO, AFUA [address] [place] [address], [phone], [facility], 06/05/2021 13:20:43
[2024-05-29 12:16] LABS: Abs Immature Grans 0.05 10^3/uL (0.0-0.06); Absolute Basophil Count 0.03 10^3/uL (0.0-0.2); Absolute Eosinophil Count 0.16 10^3/uL (0.0-0.7); Absolute Lymphocyte Count 2.01 10^3/uL (1.2-3.4); Absolute Monocyte Count 0.52 10^3/uL (0.1-0.8); Basophils % 0.4 %; Eosinophils % 2.4 %; HCT 45.2 % (40.0-50.0); HGB 15.2 g/dL (13.5-17.5); Immature Grans % 0.7 %; Lymphocytes % 30.1 %; MCH 29.1 pg (27.0-33.0); MCHC 33.6 % (32.0-36.0); MCV 87 fL (80-95); MPV 9.2 fL (8.0-11.0); Monocytes % 7.8 %; Neutrophils % 58.6 %; Platelet Count 269 10^3/uL (130-400); RBC 5.22 10^6/uL (4.36-5.78); RDW 13.2 % (11.8-14.1); RDW-SD 41.2 fL; WBC 6.67 10^3/uL (4.4-10.8)
[2024-05-29 12:38] LABS: ALT 160 U/L (16-63); AST 73 U/L (15-37); GGT 36 U/L (15-85)
[2024-05-29 12:41] LABS: *AMPHETAMINES SCREEN URINE Negative (Negative); *BARBITURATES SCREEN URINE Negative (Negative); *BENZODIAZEPINES SCREEN URINE Negative (Negative); Cannabinoids THC Negative (Negative); Cocaine Screen,Urine Negative (Negative); METHADONE URINE SCREEN Negative (Negative); OPIATES URINE SCREEN Negative (Negative)
[2024-05-29 12:42] LABS: Tricyclic Antidepressants Positive (Negative)
[2024-05-29 12:44] LABS: Hemoglobin A1C 5.3 % (<5.7)
[2024-05-29 12:46] LABS: ALT 156 U/L (16-63); AST 72 U/L (15-37); Albumin 3.8 g/dL (3.4-5.0); Alkaline Phosphatase 91 U/L (46-116); Anion Gap 6.8 mmol/L (3-11); BUN 12 mg/dL (7-18); Bilirubin, Total 0.48 mg/dL (0.2-1.0); CO2 29.2 mmol/L (21.0-32.0); CREATININE 1.1 mg/dL (0.70-1.30); Chloride 105 mmol/L (98-107); Estimated GFR 92.04 (mL/min/1.73m2); FREE T4 0.95 ng/dL (0.76-1.46); Glucose 102 mg/dL (74-106); Potassium 4.5 mmol/L (3.5-5.1); Sodium 141 mmol/L (136-145); TSH 2.11 uIU/mL (0.36-3.74); Total Protein 8.1 g/dL (6.4-8.2)
[2024-05-29 13:24] LABS: Calculated LDL 64 mg/dL (<100); Cholesterol 123 mg/dL (<200); HDL Cholesterol 41 mg/dL (40-60); Triglyceride 94 mg/dL (<150); Vitamin D 25 Total 22.3 ng/mL (30-100)
[2024-05-29 18:38] LABS: Hepatitis B Surface Ag Negative (Negative)
[2024-05-29 19:08] LABS: Hep A Total Ab w Rflx IgM Negative (Negative)
[2024-05-29 19:09] LABS: HIV-1/2 Ag & Ab Screen Negative (Negative)
[2024-06-01 10:15] LABS: HBc IgM Ab, S Negative (Negative)
[2024-06-05 11:50] LABS: Testosterone, Free 4.15 ng/dL (4.85-19.0); Testosterone, Total 117 ng/dL (240-950)
== END 2024-05-29 01:24 | disposition home or self-care (01) ==
LOC: LOS 01:23
PROVIDERS: Nurse Practitioner Gerontology; PCP Family Medicine; Visit Provider Registered Nurse
DX: F31.81 Bipolar II disorder (principal); F11.11 Opioid abuse, in remission; F19.11 Other psychoactive substance abuse, in remission; F90.2 Attention-deficit hyperactivity disorder, combined type; F51.05 Insomnia due to other mental disorder; F11.20 Opioid dependence, uncomplicated; E29.1 Testicular hypofunction
CPT/HCPCS: 36415; 80053; 80061; 80307; 82306; 84402; 84403; 86704; 86709; 86803; 87340; 87389; 82977; 83036; 84439; 84443; 84450; 84460; 85025; 86705

== ENCOUNTER 2024-09-18 01:12 | Outpatient (CLI) | payer OTHER, MEDICAID, SELFPAY ==
--- NOTE | 2024-09-24 12:00 | TELEFU_ITS ---
Date of service: 09/18/24 Time of Service: 15:30 Nutrition Note NOTE: Met with Nadeem for help with eating for healthy weight loss. Went over some low hanging fruit like how he decreased the amount of monster energy drinks to very infrequently and suggested he do the same with a lot of ot her processed items he may consume - goal is to eat real food and skip the stuff made in a lab. Doesn't weigh himself - prefers to aim for healthy eating and let nature do the rest. We discussed the adjunct need to increase activity at baseline and schedule more intense sessions of exercise. Nadeem would like a list of foods to eat and not to eat to help menu planning, which I will email him. He has my number for questions or any need for follow up. Time Spent in Nutritional Counseling and Treatment: 25 min
== END 2024-09-18 01:13 | disposition home or self-care (01) ==
LOC: DS 01:12
PROVIDERS: PCP Family Medicine; Visit Provider Dietitian, Registered
DX: E66.9 Obesity, unspecified (principal)
CPT/HCPCS: 00123; 97802

== ENCOUNTER 2024-12-30 10:31 | Outpatient (REF) | payer OTHER, SELFPAY ==
[2025-01-08 23:32] LABS: Testosterone, Free 68.2 pg/mL (35.0-155.0)
== END 2024-12-30 10:32 | disposition home or self-care (01) ==
LOC: NCHCN 10:31
PROVIDERS: PCP Family Medicine; Visit Provider Family Medicine
DX: E29.1 Testicular hypofunction (principal)
CPT/HCPCS: 84402; 84403

== ENCOUNTER 2025-02-10 12:04 | Outpatient (CLI) | payer OTHER, SELFPAY ==
--- NOTE | 2025-02-10 14:25 | DI.RAD_ITS ---
Exam(s) XR KNEE RT 3V AP,LAT,MADONNA EXAM: XR KNEE RT 3V AP,LAT,MADONNA CLINICAL HISTORY: ACUTE PAIN RT KNEE,M25.561. TECHNIQUE: 2D digital imaging was performed. COMPARISON: No exams were available for comparison FINDINGS: 3 views No evidence of fracture but there is a moderate size joint effusion signifying internal derangement. Bone density normal. No osseous lesions. No erosions. There is an enthesophyte on the anterosuperior aspect of the patella at the quadriceps insertion site at this level. IMPRESSION: No acute osseous findings but there is a joint effusion which signifies internal derangement. Appropriate follow-up recommended. DATA REPOSITORY: RADIATION DOSE DELIVERED:
== END 2025-02-10 12:24 ==
LOC: DI 12:05
PROVIDERS: PCP Family Medicine; Visit Provider Family Medicine
DX: M25.561 Pain in right knee (principal)
CPT/HCPCS: 73562

== ENCOUNTER → 2025-04-22 09:42 | Outpatient (CLI) | payer OTHER, SELFPAY ==
--- NOTE | 2025-04-22 15:25 | DI.MRI_ITS ---
Exam(s) MR LOWER JOINT RT WO EXAM: MR LOWER JOINT RT WO CLINICAL HISTORY: R KNEE PAIN, INTERNAL DERANGEMENT OF R KNEE, M23.91 TECHNIQUE: Multiplanar multisequence MRI of the knee was performed. COMPARISON: CR XR KNEE RT 3V AP,LAT,MADONNA from 02/10/2025 FINDINGS: EFFUSION: There is a prominent knee joint effusion. There is some mild synovial thickening evident. There is no Zepeda cyst in the popliteal fossa. There are no obvious loose intra-articular bodies. MARROW:No evidence of pivot shift bone contusion pattern. There is mild subarticular edema in the sub spinous region of the mid tibial plateau where there appears to be a tiny 2 millimeter degenerative subarticular cyst. There are no significant osseous lesions. PATELLOFEMORAL COMPARTMENT: The quadriceps tendon is intact. The patellar ligament is intact. There is no significant thinning of the retropatellar cartilage. No evidence of fissure nor significant chondral defect. No osteochondral defect at this level.There is no intraosseous signal to suggest recent patellar dislocation. There are no patellar retinacular tears. CRUCIATE LIGAMENTS: There is significant signal abnormality throughout the length of the anterior cruciate ligament however, there are some intact fascicular strands evident in this structure. There is mild increased signal in the superior half of the posterior cruciate ligament but without high-grade tear of this structure. MEDIAL COMPARTMENT/MEDIAL MENISCUS: There are no tears of the medial meniscus evident.. There are no chondral defects, osteochondral defects, subarticular marrow edema in the medial femoral condyle, nor osteophytes evident. MEDIAL COLLATERAL LIGAMENT: Mild signal. No high-grade tear. LATERAL COMPARTMENT/LATERAL MENISCUS: There is no evidence of lateral meniscal tear.There are no chondral defects, osteochondral defects, subarticular marrow edema, nor osteophytes evident. ILIOTIBIAL BAND: Intact LATERAL COLLATERAL LIGAMENT COMPLEX: The fibular collateral ligament is intact. The biceps femoris tendon is intact.Popliteus muscle and tendon are intact. IMPRESSION: 1. The main findings here are in the anterior cruciate ligament abnormal thickening, fascicular indistinctness and signal abnormality throughout the length of this structure. There are some remaining fascicular strands of both bands of this structure which may qualify this is high-grade partial tearing as opposed to full disruption of the ACL. There is also no pivot shift bone contusion pattern evident, although there is a prominent joint effusion evident. 2. There is some increased signal in the superior half of the PCL but no full- thickness tear of this structure. 3. There are no meniscal tears evident and there are no significant osteoarthritic degenerative changes in all 3 compartments of the knee. 4. There are no significant collateral ligament tears. Also no evidence of tear of the iliotibial band. DATA REPOSITORY:
== END ==
PROVIDERS: PCP Family Medicine; Visit Provider Student in an Organized Health Care Education/Training Program
DX: M23.91 Unspecified internal derangement of right knee (principal)
CPT/HCPCS: 73721

== ENCOUNTER 2025-05-10 15:17 | Outpatient (CLI) | payer OTHER, SELFPAY ==
[2025-05-10 16:16] LABS: HCT 47.4 % (40.0-50.0); HGB 16.1 g/dL (13.5-17.5); MCH 30.1 pg (27.0-33.0); MCHC 34.0 % (32.0-36.0); MCV 89 fL (80-95); MPV 9.4 fL (8.0-11.0); Platelet Count 289 10^3/uL (130-400); RBC 5.34 10^6/uL (4.36-5.78); RDW 12.9 % (11.8-14.1); RDW-SD 42.0 fL; WBC 9.73 10^3/uL (4.4-10.8)
[2025-05-10 16:43] LABS: ESR 10 mm/hr (0-15)
[2025-05-10 17:09] LABS: C-Reactive Protein < 0.50 mg/dL (<=0.50)
[2025-05-11 09:54] LABS: Lyme Ab w Rflx to Lyme Confirm Negative (Negative)
[2025-05-12 12:57] LABS: B. miyamotoi PCR Negative (Negative); Babesia divergens/MO-1 Negative (Negative); Ehrlichia muris eauclairensis Negative (Negative)
== END 2025-05-10 15:18 | disposition home or self-care (01) ==
LOC: LBO 15:19
PROVIDERS: PCP Family Medicine; Visit Provider Student in an Organized Health Care Education/Training Program
DX: M65.961 Unspecified synovitis and tenosynovitis, right lower leg (principal)
CPT/HCPCS: 36415; 85027; 85652; 87798; 86140; 86618